=== PATIENT | male | born 1955 | race Caucasian/White ===

== ENCOUNTER 2018-06-13 08:58 | Inpatient (IN) | payer SELFPAY ==
--- NOTE | 2018-06-13 09:38 | C.PDOC ---
History Of Present Illness 62 yr old male w/ hx of etoh, smoking, neck surgery after fracturing his neck / falling 7 years prior p/w neck pain. Pt notes pain first started in his chest at 2000 last night, burning up from his throat, followed by neck pain. He notes the chest pain was not throbbing, and denies any family hx of heart issues. He notes that he had surgery on his neck done in [facility] and is followed there. He notes he is only visiting the [place]. He denies any sore throat or cough. No fever, chills or night sweats. No neck stiffness or headache. No recent fall or trauma. No nausea or vomiting. No abdominal pain. No constipation / diarrhea or dark or bloody stool. No redness to area. He denies any current chest pain. He notes mild SOB due to the neck pain. No change in phonation or dysphagia. Allergies: diclofenac Time Seen by Provider: 06/13/18 09:17 Chief Complaint (Nursing): Chest Pain Past Medical History Vital Signs: Last Vital Signs Temp 97.7 F 06/13/18 09:06 Pulse 76 06/13/18 09:06 Resp 18 06/13/18 09:06 BP 142/91 H 06/13/18 09:06 Pulse Ox 96 06/13/18 09:06 Family History: States: Unknown Family Hx - Social History Hx Alcohol Use: Yes Hx Substance Use: No - Immunization History Hx Tetanus Toxoid Vaccination: No Hx Influenza Vaccination: No Hx Pneumococcal Vaccination: No Review Of Systems Constitutional: Negative for: Fever, Chills, Sweats Eyes: Negative for: Pain, Vision Change ENT: Positive for: Throat Pain. Negative for: Ear Pain, Ear Discharge, Nose Pain, Nose Discharge, Nose Congestion, Mouth Pain, Mouth Swelling, Throat Swelling Cardiovascular: Negative for: Chest Pain, Palpitations, Orthopnea Respiratory: Positive for: Shortness of Breath. Negative for: Cough, Hemoptysis, SOB with Excertion, Pleuritic Pain, Sputum Gastrointestinal: Negative for: Nausea, Vomiting, Abdominal Pain, Diarrhea, Constipation, Melena, Hematochezia Genitourinary: Negative for: Dysuria, Frequency, Incontinence, Hematuria Musculoskeletal: Negative for: Neck Pain, Shoulder Pain Skin: Negative for: Rash, Lesions Neurological: Negative for: Weakness, Numbness Psych: Negative for: Anxiety Physical Exam - Physical Exam Appears: Well, Non-toxic, No Acute Distress Skin: Normal Color, Warm Head: Atraumatic, Normacephalic Eye(s): bilateral: Normal Inspection, PERRL, EOMI Ear(s): Bilateral: Normal Nose: Normal, No Flaring, No Discharge Oral Mucosa: Moist Tongue: Normal Appearing Lips: Normal Appearing Teeth: Normal Dentition Gingiva: Normal Appearing Throat: Normal, No Erythema, No Exudate, No Drooling, No Mass Neck: Normal, Normal ROM, Trachea Midline, No Midline Cervical Tenderness, No Paracervical Tenderness, No Step Off Deformity, Supple, Other (no meningeal signs) Lymphatic: No Adenopathy Chest: Symmetrical Cardiovascular: Rhythm Regular Respiratory: Normal Breath Sounds, No Decreased Breath Sounds, No Accessory Muscle Use, No Rales, No Rhonchi, No Stridor, No Wheezing Gastrointestinal/Abdominal: Normal Exam, Soft, No Tenderness Back: Normal Inspection, No CVA Tenderness Extremity: Normal ROM Neurological/Psych: Oriented x3, Normal Speech, Normal Cognition, No Cerebellar Signs, Normal Motor ED Course And Treatment - Laboratory Results Result Diagrams: 06/13/18 09:45 06/13/18 09:45 O2 Sat by Pulse Oximetry: 96 - CT Scan/US Cervical Spine CT Other Rad Studies (CT/US): Read By Radiologist, Radiology Report Reviewed CT/US Interpretation: IMPRESSION: Multilevel ACDF of. Discectomy changes C4-C5 through the C6-C7 levels with 4 level anterior fixation plate attached to the cortical margins of C4 through C7. There is a small amount of air seen adjacent to the anterior inferior margin of the fixation plate at the level of the C6 screws and also along the inferior tip of the plate. Findings may be secondary to partially air-filled esophagus which abuts the inferior margin of the plate however normally, area should not abut the fixation plate which may be in fact exposed to the aerodigestive tract. Clinical correlation with nor surgical consultation recommended. There also appears to be narrowing of the exit foramina at C6-C7 level due to hypertrophic uncovertebral facets. Medical Decision Making Medical Decision Makin yr old well appearing male, hx of neck surgery p/w chest pain yesterday (none today) and neck pain. Neck pain started yesterday as same time as chest pain but chest pain has resolved. No fall or trauma. He notes only pain with movement of his neck. Likely low risk heart score given non-conventional chest pain. On oropharyngeal exam- uvula midline, no erythema. No abnl noted. On palpation, pain around cricoid area. NO crepitus or erythema noted to site. Given hx of surgery, will seek imaging. EK, NSR, no stemi HEART Score: RF: 0 AGE: 3 Story: 0 EK Trop: pending 1137 trop unremark[address] CXR unremark[address] CT read w/ clinical correlation requested: ?perf Cervical Spine CT: IMPRESSION: Multilevel ACDF of. Discectomy changes C4-C5 through the C6-C7 levels with 4 level anterior fixation plate attached to the cortical margins of C4 through C7. There is a small amount of air seen adjacent to the anterior inferior margin of the fixation plate at the level of the C6 screws and also along the inferior tip of the plate. Findings may be secondary to partially air-filled esophagus which abuts the inferior margin of the plate however normally, area should not abut the fixation plate which may be in fact exposed to the aerodigestive tract. Clinical correlation with nor surgical consultation recommended. There also appears to be narrowing of the exit foramina at C6-C7 level due to hypertrophic uncovertebral facets. 11:48 Called assembler surgical garment, will see patient. 11:[address] Kimball, ENT director external communications. States to consult general surgery and GI. No intervention at this time per ENT 11:[address] Givens, GI director external communications. States no intervention at this time. 12:00 Neurosurgery paged. 12:25 appreciate consult w/ vice president commercial bank: Likely NSX consult, no acute intervention from general surgery- resident will get into contact w/ CT surgery. Neurosurgery paged. 12:45 Neurosurgery paged again. 12:51 no elevated WBC, ABX ordered. Pt remains non septic appearing. Spoke to Dr. Tomlin, Neurosurgery director external communications. Will see patient in the morning. No intervention at this time. [address] Tomlin and per his CT reading, pt may require scope, no NSX intervention at this time appreciate consultation w/ Dr. Salinas (medicine): to admit to her service. RE Paged GI. Pt in NAD 1413 Appreciate consult w/ Dr. Givens (GI) - to see pt Disposition - Disposition Disposition Time: 13:58 Condition: STABLE Forms: [facility] (Ukrainian) - Clinical Impression Clinical Impression: Neck pain
[2018-06-13 10:02] LABS: ALB/GLOB RATIO 1.4 (1.0-2.1); ALBUMIN 4.4 g/dL (3.5-5.0); ALT/SGPT 15 U/L (21-72); AST/SGOT 29 U/L (17-59); BLOOD UREA NITROGEN 11 mg/dL (9-20); CALCIUM 9.4 mg/dl (8.6-10.4); GFR NON-AFRICAN AMERICAN > 60; LIPASE 137 U/L (23-300)
[2018-06-13 10:04] LABS: BASO % 0.4 % (0.0-2.0); EOS # 0.1 K/uL (0.0-0.7); EOS % 0.6 % (0.0-4.0); HEMOGLOBIN 17.9 g/dL (12.0-18.0); LYMPH # 0.8 K/uL (1.0-4.3); LYMPH % 9.5 % (20.0-40.0); MEAN CELL VOLUME 105.5 fL (80.0-94.0); MEAN CORPUSCULAR HEMOGLOBIN 36.5 pg (27.0-31.0); MEAN CORPUSCULAR HGB CONC 34.6 g/dL (33.0-37.0); MEAN PLATELET VOLUME 7.3 fL (7.2-11.7); MONO # 1.3 K/uL (0.0-0.8); MONO % 14.7 % (0.0-10.0); NEUT # 6.4 K/uL (1.8-7.0); NEUT % 74.8 % (50.0-75.0); PLATELET COUNT 277 K/uL (130-400); RBC 4.91 Mil/uL (4.40-5.90); RED CELL DISTRIBUTION WIDTH 13.7 % (11.5-14.5); WHITE BLOOD COUNT 8.6 K/uL (4.8-10.8)
[2018-06-13 11:09] LABS: BANDS 2 % (0-2); LYMPHOCYTE 10 % (20-40); MONOCYTE 6 % (0-10); NEUTROPHIL 78 % (50-75); REACTIVE LYMPHOCYTES 4 % (0-0); TOTAL CELLS COUNTED 100
[2018-06-13 11:10] LABS: PLATELET ESTIMATE NORMAL (NORMAL)
[2018-06-13 11:11] LABS: ANISOCYTOSIS SLIGHT
[2018-06-13 11:12] LABS: OVALOCYTES SLIGHT
[2018-06-13 11:13] LABS: STOMATOCYTES SLIGHT
--- NOTE | 2018-06-13 11:13 | CT ---
Date of service: 06/13/2018 PROCEDURE: CT Cervical Spine without contrast HISTORY: History of plate/bone graft for previous fx COMPARISON: None available. TECHNIQUE: Axial computed tomography images were obtained of the cervical spine without the use of intravenous contrast. Coronal and sagittal reformatted images were created and reviewed. Radiation dose: Total exam DLP = 275.58 mGy-cm. This CT exam was performed using one or more of the following dose reduction techniques: Automated exposure control, adjustment of the mA and/or kV according to patient size, and/or use of iterative reconstruction technique. FINDINGS: VERTEBRAE: Multilevel ACDF. There are anterior discectomy changes involving the C4-C5, C5-C6 and C6-C7 levels. Four level anterior fixation plate attached to the anterior cortical margins of the C4 through the C7 segments by multiple of prominent anterior bridging osteophytes seen at the C3-C4 and C7-T1 levels.. There does appear to be small amount of air adjacent to the anterior inferior margin of the fixation plate just at the level of the C6 screws and also at the inferior tip of the plate which could be secondary to the a partially air-filled esophagus which abuts the inferior margin of the fixation plate . Normally, however air should not abut the fixation plate which may be in fact exposed to the aero digestive tract. Clinical correlation recommended. Neurosurgical consultation may be prudent for further evaluation. DISCS/SPINAL CANAL/NEURAL FORAMINA: There is mild disc space narrowing seen at the at C2-C3 and C3-C4 levels. Small central and bilateral bulge of the posterior annulus noted at the C3-C4 level which flattens the ventral surface of the thecal sac and appears to reach but does not compress the ventral surface of the cord. The uncovertebral and facet joints are slightly hypertrophic. Exit foramina appear adequate on the left and marginal to adequate on the right. The uncovertebral and facet joints are mildly hypertrophic at the remaining levels. The overall central bony canal appears adequate. PARASPINAL SOFT TISSUES: Paraspinal soft tissues unremarkable. OTHER FINDINGS: Small blebs and multiple blebs, small bowel and paraseptal emphysematous changes seen in the upper lobe/lung apices bilaterally right greater than left. There are also chronic of biapical pleural thickening changes and parenchymal scarring. IMPRESSION: Multilevel ACDF of. Discectomy changes C4-C5 through the C6-C7 levels with 4 level anterior fixation plate attached to the cortical margins of C4 through C7. There is a small amount of air seen adjacent to the anterior inferior margin of the fixation plate at the level of the C6 screws and also along the inferior tip of the plate. Findings may be secondary to partially air-filled esophagus which abuts the inferior margin of the plate however normally, area should not abut the fixation plate which may be in fact exposed to the aerodigestive tract. Clinical correlation with nor surgical consultation recommended. There also appears to be narrowing of the exit foramina at C6-C7 level due to hypertrophic uncovertebral facets. See above discussion for additional details and findings.
[2018-06-13] MEDS ORDERED: Piperacill/Tazo 3.375gm in Dex 3.375 GM/50 ML BAG IVPB STA (12:08)
[2018-06-13] MEDS ORDERED: Sodium Chloride 0.9% 1,000 ML IV SCH (13:00)
[2018-06-13] MEDS ORDERED: Piperacillin/Tazobact 3.375 gm 100 ML IVPB ONE (13:06)
[2018-06-13] MEDS ORDERED: Vancomycin 1 GM 1 GM/250 ML BAG IVPB ONE (13:06)
[2018-06-13] MEDS ORDERED: Sodium Chloride 0.9% 1,000 ML ONE (13:06)
[2018-06-13 13:09] LABS: VENOUS BLOOD GAS BASE EXCESS -3.1 mmol/L (0.0-2.0); VENOUS BLOOD GAS PCO2 39 mmHg (40-60); VENOUS BLOOD GAS PO2 50 mm/Hg (30-55); VENOUS BLOOD PH 7.36 (7.32-7.43)
--- NOTE | 2018-06-13 15:32 | RAD ---
Date of service: 06/13/2018 HISTORY: neck pain COMPARISON: No prior. TECHNIQUE: Chest PA and lateral FINDINGS: LUNGS: Lung nayak are hyperinflated consistent with underlying chronic manifestations of COPD. Mild biapical pleural thickening and adjacent parenchymal scarring felt to be present. PLEURA: No significant pleural effusion identified. No pneumothorax apparent. CARDIOVASCULAR: No aortic atherosclerotic calcification present. Normal cardiac size. No pulmonary vascular congestion. OSSEOUS STRUCTURES: Mild multilevel degenerative spondylosis of the thoracic spine VISUALIZED UPPER ABDOMEN: Four level ACDF plate seen overlying the lower cervical spine normal. OTHER FINDINGS: None. IMPRESSION: Hyperinflation-chronic changes of COPD. Mild biapical pleural thickening and parenchymal scarring
--- NOTE | 2018-06-13 15:43 | CP.PCM.CON ---
History of Present Illness - History of Present Illness History of Present Illness: I was asked to see this patient today for possible esophageal perforation. I discussed the case a few times with ER MD DR Henderson. The patient had a c spine plate put in 8 yrs ago after a fall. He reports chronic pains in his neck and c hest, He reports chronic SOB feeling after eating. Saliva is going down now. He ate donuts this am- no problem.+ Wt loss. Denies RB, melena, fever, chills.. + heavy ETOH and smoking Review of Systems - Constitutional Constitutional: Anorexia, Fatigue, Weight Loss. absent: Weight Gain - EENT Eyes: absent: Diplopia Nose/Mouth/Throat: Sore Throat, Neck Pain. absent: Dental Pain - Cardiovascular Cardiovascular: absent: Palpitations - Respiratory Respiratory: Cough, Dyspnea. absent: Hemoptysis, Wheezing, Stridor - Gastrointestinal Gastrointestinal: Dysphagia, Nausea, Vomiting. absent: Constipation, Diarrhea, Dyspepsia, Hematemesis, Hematochezia, Loose Stools, Melena - Genitourinary Genitourinary: absent: Hematuria - Integumentary Integumentary: absent: Pruritus, Rash - Neurological Neurological: Dizziness. absent: Confusion, Convulsions, Radicular Pain - Psychiatric Psychiatric: absent: Visual Hallucinations Past Patient History - Past Social History Smoking Status: Heavy Smoker > 10 Cigarettes Daily - PSYCHIATRIC Hx Substance Use: No - SURGICAL HISTORY Hx Surgeries: Yes Hx Musculoskeletal Surgery: Yes (neck s/p fall) - ANESTHESIA Hx Anesthesia: Yes Meds Allergies/Adverse Reactions: Allergies Allergy/AdvReac Type Severity Reaction Status Date / Time No Known Allergies Allergy Verified 06/13/18 09:06 - Medications Medications: Current Medications Sodium Chloride (Sodium Chloride 0.9%) 1,000 mls @ 75 mls/hr IV .[id number] DONNIE Physical Exam - Constitutional Appears: Non-toxic, Cachectic - ENT Exam Additional comments: pharync clear, neck- no crepitus. - Respiratory Exam Respiratory Exam: Clear to Auscultation Bilateral - Cardiovascular Exam Cardiovascular Exam: RRR - GI/Abdominal Exam GI & Abdominal Exam: Normal Bowel Sounds, Soft. absent: Distended, Guarding, Rebound - Extremities Exam Extremities exam: Negative for: calf tenderness - Neurological Exam Neurological exam: Alert, Oriented x3 - Psychiatric Exam Psychiatric exam: Normal Mood Results - Vital Signs Recent Vital Signs: Last Vital Signs Temp 98.3 F 06/13/18 14:06 Pulse 74 06/13/18 14:06 Resp 18 06/13/18 14:06 BP 131/81 06/13/18 14:06 Pulse Ox 96 06/13/18 14:16 - Labs Result Diagrams: 06/13/18 09:45 06/13/18 09:45 Labs: Laboratory Results - last 24 hr 06/13/18 06/13/18 06/13/18 09:45 09:45 13:05 WBC 8.6 RBC 4.91 Hgb 17.9 Hct 51.8 H MCV 105.5 H MCH 36.5 H MCHC 34.6 RDW 13.7 Plt Count 277 MPV 7.3 Neut % (Auto) 74.8 Lymph % (Auto) 9.5 L [place] % (Auto) 14.7 H Eos % (Auto) 0.6 Baso % (Auto) 0.4 Neut # (Auto) 6.4 Lymph # (Auto) 0.8 L [place] # (Auto) 1.3 H Eos # (Auto) 0.1 Baso # (Auto) 0.0 Neutrophils % (Manual) 78 H Band Neutrophils % 2 Lymphocytes % (Manual) 10 L Reactive Lymphs % 4 H Monocytes % (Manual) 6 Platelet Estimate Normal Anisocytosis (manual) Slight Macrocytosis (manual) Slight Ovalocytes Slight Stomatocytes Slight pO2 50 VBG pH 7.36 VBG pCO2 39 L VBG HCO3 22.1 VBG Total CO2 23.2 VBG O2 Sat (Calc) 87.7 H VBG Base Excess -3.1 L VBG Potassium 3.2 L Glucose 86 Lactate 1.0 Sodium 133 140.0 Potassium 4.1 Chloride 99 112.0 H Carbon Dioxide 27 Anion Gap 11 BUN 11 Creatinine 0.7 L Est GFR ( Amer) > 60 Est GFR (Non-Af Amer) > 60 Random Glucose 115 H Calcium 9.4 Total Bilirubin 0.9 AST 29 ALT 15 L Alkaline Phosphatase 124 Troponin I 0.0120 Total Protein 7.7 Albumin 4.4 Globulin 3.3 Albumin/Globulin Ratio 1.4 Lipase 137 Venous Blood Potassium 3.2 L Assessment & Plan (1) Chest pain Status: Acute (2) Neck pain Assessment and Plan: Pain has been chronic. Reports mild dysphagia- chronic. OCc SOB when eats. CT- shows air around neck plate- may be superimposed air from esophagus, vs perforation. WBC is normal. Due to risk of possible perforation, EGD is contraindicated. COnsider esophogram and/or CT chest. REC- NPO, PPI, Thoracic surgery consult. Neuro surg consult. CASe discussed with Dr Kimball, Dr Henderson, Dr Gunn, and admitting medical team. Consider endoscopy in future. Status: Acute
--- NOTE | 2018-06-13 15:52 | CP.PCM.CON ---
History of Present Illness - History of Present Illness History of Present Illness: Thoracic Surgery Dr. Haro 62 y/o M w/ PMHx of ACDF s/p fall 8yrs ago presents to the ED c/o pharyngitis and dyphagia. Pt admits to dysphagia present and unchanged since surgery; however pain is a new symptom and started last evening. Pt has never before had this pain. Pt denies associated F/C, N/V, CP, SOB, abd pain. Pt denies recent illness or injury. In the ED, pt underwent CT neck which was concerning for erosion of ACDF harrdware through the esophagus, for which surgery was consulted. PMHx: EtOH dependence Meds: reviewed in chart NKDA PSHx: ACDF, bone harvest from B/L hips SHx: heavy tobacco use; daily EtOH use; denies drug use FHx: noncontributory Review of Systems - Review of Systems All systems: reviewed and no additional remarkable complaints except (see HPI) Past Patient History - Past Social History Smoking Status: Heavy Smoker > 10 Cigarettes Daily - PSYCHIATRIC Hx Substance Use: No - SURGICAL HISTORY Hx Surgeries: Yes Hx Musculoskeletal Surgery: Yes (neck s/p fall) - ANESTHESIA Hx Anesthesia: Yes Meds Allergies/Adverse Reactions: Allergies Allergy/AdvReac Type Severity Reaction Status Date / Time No Known Allergies Allergy Verified 06/13/18 09:06 - Medications Medications: Current Medications Sodium Chloride (Sodium Chloride 0.9%) 1,000 mls @ 75 mls/hr IV .[id number] DONNIE Physical Exam - Constitutional Appears: Non-toxic, No Acute Distress - Head Exam Head Exam: NORMAL INSPECTION - Eye Exam Eye Exam: Normal appearance - ENT Exam ENT Exam: Mucous Membranes Moist - Neck Exam Neck exam: Positive for: Normal Inspection - Respiratory Exam Respiratory Exam: NORMAL BREATHING PATTERN. absent: Accessory Muscle Use, Respiratory Distress - Cardiovascular Exam Cardiovascular Exam: REGULAR RHYTHM. absent: Bradycardia, Tachycardia - GI/Abdominal Exam GI & Abdominal Exam: Soft. absent: Distended, Tenderness - Extremities Exam Extremities exam: Positive for: normal inspection - Neurological Exam Neurological exam: Alert, Oriented x3 - Psychiatric Exam Psychiatric exam: Normal Affect, Normal Mood - Skin Skin Exam: Dry, Intact, Normal Color, Warm Results - Vital Signs Recent Vital Signs: Last Vital Signs Temp 98.3 F 03/03/19 14:06 Pulse 74 06/13/18 14:06 Resp 18 06/13/18 14:06 BP 131/81 06/13/18 14:06 Pulse Ox 96 06/13/18 14:16 - Labs Result Diagrams: 06/13/18 09:45 06/13/18 09:45 Labs: Laboratory Results - last 24 hr 06/13/18 06/13/18 06/13/18 09:45 09:45 13:05 WBC 8.6 RBC 4.91 Hgb 17.9 Hct 51.8 H MCV 105.5 H MCH 36.5 H MCHC 34.6 RDW 13.7 Plt Count 277 MPV 7.3 Neut % (Auto) 74.8 Lymph % (Auto) 9.[address] [place] % (Auto) 14.7 H Eos % (Auto) 0.6 Baso % (Auto) 0.4 Neut # (Auto) 6.4 Lymph # (Auto) 0.[address] [place] # (Auto) 1.3 H Eos # (Auto) 0.1 Baso # (Auto) 0.0 Neutrophils % (Manual) 78 H Band Neutrophils % 2 Lymphocytes % (Manual) 10 L Reactive Lymphs % 4 H Monocytes % (Manual) 6 Platelet Estimate Normal Anisocytosis (manual) Slight Macrocytosis (manual) Slight Ovalocytes Slight Stomatocytes Slight pO2 50 VBG pH 7.36 VBG pCO2 39 L VBG HCO3 22.1 VBG Total CO2 23.2 VBG O2 Sat (Calc) 87.7 H VBG Base Excess -3.1 L VBG Potassium 3.2 L Glucose 86 Lactate 1.0 Sodium 133 140.0 Potassium 4.1 Chloride 99 112.0 H Carbon Dioxide 27 Anion Gap 11 BUN 11 Creatinine 0.7 L Est GFR ( Amer) > 60 Est GFR (Non-Af Amer) > 60 Random Glucose 115 H Calcium 9.4 Total Bilirubin 0.9 AST 29 ALT 15 L Alkaline Phosphatase 124 Troponin I 0.0120 Total Protein 7.7 Albumin 4.4 Globulin 3.3 Albumin/Globulin Ratio 1.4 Lipase 137 Venous Blood Potassium 3.2 L - Imaging and Cardiology CT scan - c/s Status: Image reviewed by me, Report reviewed by me Assessment & Plan - Assessment and Plan (Free Text) Assessment: 62 y/o M w/ potential esophageal erosion by ACDF Plan: - recommend gastrograffin swallow study to r/o perforation - NeruoSurgery consult - monitor vitals - monitor WBC - CT C to w/o pneumomediastinum - GI consulted --> EDG Pt discussed w/ Dr. Estrellita Anguiano DO PGY3
[2018-06-13] MEDS ORDERED: Multivitamin (MVI) 10 ML, Thiamine 100 MG, Folic Acid 1 MG in Sodium Chloride 0.9% 1,00... IV ONE (15:55)
--- NOTE | 2018-06-13 16:25 | CP.PCM.HP ---
History of Present Illness - History of Present Illness History of Present Illness: 62 year old male with past medical history of anterior cervical discectomy and fusion (10 years ago) presents to the ER for pain with swallowing. Patient states he has pain and difficulty with swallowing after his surgery 10 years ago but yesterday the pain became worse 10/10 pain. Patient states the pain radiates to his chest. He states sometimes when he eats the food comes out through his nose which has also been chronic. He states he always feels like food is getting stuck in his throat. His son who is at bedside states he always takes a very long time to finish any meal. Patient states the pain is worse with eating and breathing. Patient also states he also has chronic numbness on the left side of his extremities after the surgery. Patient denies fever, chills, nausea, vomiting, abdominal pain, dysuria, constipation or diarrhea. PMD: none Past Medical History: denies Past Surgical History: anterior cervical discectomy and fusion (10 years ago in [facility])- occurred after a fall down the stairs; bone harvest from bilateral hip Medications: denies Allergies: diclofenac - rash Family History: denies Social History: Originally from [facility] - visiting his son; daily alcohol use - states "alot"; smokes about 1/2 ppd for 50 years; denies illicit drug use Present on Admission - Present on Admission Any Indicators Present on Admission: No Review of Systems - Constitutional Constitutional: absent: Chills, Fever - Cardiovascular Cardiovascular: Chest Pain. absent: Dyspnea, Leg Edema, Palpitations, Pedal Edema - Respiratory Respiratory: absent: Cough, Dyspnea - Gastrointestinal Gastrointestinal: Dysphagia. absent: Constipation, Diarrhea, Heartburn, Loose Stools, Nausea, Vomiting - Genitourinary Genitourinary: absent: Dysuria - Musculoskeletal Musculoskeletal: Neck Pain - Neurological Neurological: absent: Dizziness Past Patient History - Past Social History Smoking Status: Heavy Smoker > 10 Cigarettes Daily - PSYCHIATRIC Hx Substance Use: No - SURGICAL HISTORY Hx Surgeries: Yes Hx Musculoskeletal Surgery: Yes (neck s/p fall) - ANESTHESIA Hx Anesthesia: Yes Meds Allergies/Adverse Reactions: Allergies Allergy/AdvReac Type Severity Reaction Status Date / Time No Known Allergies Allergy Verified 06/13/18 09:06 Physical Exam - Constitutional Appears: No Acute Distress, Cachectic - Head Exam Head Exam: ATRAUMATIC, NORMAL INSPECTION - Eye Exam Eye Exam: EOMI, Normal appearance, PERRL Pupil Exam: NORMAL ACCOMODATION - ENT Exam ENT Exam: Mucous Membranes Dry - Respiratory Exam Respiratory Exam: Clear to Auscultation Bilateral, NORMAL BREATHING PATTERN. absent: Rales, Rhonchi, Wheezes - Cardiovascular Exam Cardiovascular Exam: REGULAR RHYTHM, +S1, +S2 - GI/Abdominal Exam GI & Abdominal Exam: Normal Bowel Sounds, Soft. absent: Tenderness - Extremities Exam Extremities exam: Positive for: normal inspection. Negative for: pedal edema, tenderness - Neurological Exam Neurological exam: Alert, CN II-XII Intact, Oriented x3 - Expanded Neurological Exam Expanded Patient oriented to: person Neuro motor strength exam: Left Upper Extremity: 5, Right Upper Extremity: 5, Left Lower Extremity: 5, Right Lower Extremity: 5 Coma Scale Eye Opening: SPONTANEOUS Coma Scale Motor Response: OBEYS COMMANDS Coma Scale Verbal: Oriented Coma Scale Total: 15 - Psychiatric Exam Psychiatric exam: Normal Affect - Skin Skin Exam: Normal Color Results - Vital Signs Recent Vital Signs: Last Vital Signs Temp 98.3 F 06/13/18 14:06 Pulse 74 06/13/18 14:06 Resp 18 06/13/18 14:06 BP 131/81 06/13/18 14:06 Pulse Ox 96 06/13/18 14:16 - Labs Result Diagrams: 06/13/18 09:45 06/13/18 09:45 Labs: Laboratory Results - last 24 hr 06/13/18 06/13/18 06/13/18 09:45 09:45 13:05 WBC 8.6 RBC 4.91 Hgb 17.9 Hct 51.8 H MCV 105.5 H MCH 36.5 H MCHC 34.6 RDW 13.7 Plt Count 277 MPV 7.3 Neut % (Auto) 74.8 Lymph % (Auto) 9.[address] [facility] % (Auto) 14.7 H Eos % (Auto) 0.6 Baso % (Auto) 0.4 Neut # (Auto) 6.4 Lymph # (Auto) 0.[address] [facility] # (Auto) 1.3 H Eos # (Auto) 0.1 Baso # (Auto) 0.0 Neutrophils % (Manual) 78 H Band Neutrophils % 2 Lymphocytes % (Manual) 10 L Reactive Lymphs % 4 H Monocytes % (Manual) 6 Platelet Estimate Normal Anisocytosis (manual) Slight Macrocytosis (manual) Slight Ovalocytes Slight Stomatocytes Slight pO2 50 VBG pH 7.36 VBG pCO2 39 L VBG HCO3 22.1 VBG Total CO2 23.2 VBG O2 Sat (Calc) 87.7 H VBG Base Excess -3.1 L VBG Potassium 3.2 L Glucose 86 Lactate 1.0 Sodium 133 140.0 Potassium 4.1 Chloride 99 112.0 H Carbon Dioxide 27 Anion Gap 11 BUN 11 Creatinine 0.7 L Est GFR ( Amer) > 60 Est GFR (Non-Af Amer) > 60 Random Glucose 115 H Calcium 9.4 Total Bilirubin 0.9 AST 29 ALT 15 L Alkaline Phosphatase 124 Troponin I 0.0120 Total Protein 7.7 Albumin 4.4 Globulin 3.3 Albumin/Globulin Ratio 1.4 Lipase 137 Venous Blood Potassium 3.2 L Assessment & Plan - Assessment and Plan (Free Text) Assessment: Dysphagia - patient is s/p ACDF (10 years ago) - per ER - spoke with neurosurgery - Dr. Tomlin - no intervention at this time; ER spoke with Dr. Kimball - no intervention at this time - GI Consult: Dr. Givens -->help appreciated * EGD contraindicated at this time * f/u barrium esophagram - Thoracic Surgery Consult: Dr. Haro --> help appreciated Images: * Cervical Spine/CT: Multilevel ACDF of. Discectomy changes C4-C5 through the C6-C7 levels with 4 level anterior fixation plate attached to the cortical margins of C4 through C7. There is a small amount of air seen adjacent to the anterior inferior margin of the fixation plate at the level of the C6 screws and also along the inferior tip of the plate. Findings may be secondary to partially air-filled esophagus which abuts the inferior margin of the plate however normally, area should not abut the fixation plate which may be in fact exposed to the aerodigestive tract. Clinical correlation with nor surgical consultation recommended. There also appears to be narrowing of the exit foramina at C6-C7 level due to hypertrophic uncovertebral facets. - Liquid Diet; NPO after midnight if patient will have a procedure - f.u with Dr. Givens - Medications: * Protonix 40mg IV daily * Toradol 15mg IVP q6prn for pain Shortness of breath - patient states his dysphagia causes him to be SOB - possibly secondary to COPD - Chest x-ray: Hyperinflation-chronic changes of COPD. Mild biapical pleural thickening and parenchymal scarring - Duonebs q6 prn Tobacco Dependence - Discussed smoking cessation - Nicotine patch 14mg daily Alcohol Dependence - CIWA protocol - Ativan 1mg q6prn - Multivitamin w/NS @ 80cc/hr - Discussed alcohol cessation Prophylaxis - Protonix 40mg IV daily - SCDs - Physical Therapy Case discussed with Dr. Molly Sam PGY-2
[2018-06-13 17:03] LABS: INR 0.9; PROTHROMBIN TIME 10.3 SECONDS (9.7-12.2)
[2018-06-13 20:45] LABS: CK-MB 0.85 ng/mL (0.0-3.38); TROPONIN I 0.023 ng/mL (0.00-0.120)
[2018-06-13] MEDS ORDERED: Albuterol-Ipratrop 3 mg / 0.5 (3 ml) UD INH PRN (23:09)
--- NOTE | 2018-06-13 23:52 | CP.PCM.PCO ---
Physician Communication Note - Physician Communication Note Physician Communication Note: Toradol held due to Voltarin allergy.
--- NOTE | 2018-06-14 07:26 | CP.PCM.PN ---
<Hari Hall - Last Filed: 06/14/18 14:53> Subjective - Date & Time of Evaluation Date of Evaluation: 06/14/18 Time of Evaluation: 07:26 - Subjective Subjective: PGY-1 Medicine Progress Note for Dr. Ladd Patient seen and examined at bedside this AM. No acute overnight events reported. Continues to endorse dysphagia, unchanged since his surgery many years ago. Pain with swallowing is new however, which is what prompted him to come to ED. No fevers/chills, chest pain, palpitations, sob, abdominal pain, n/v/d/c. 12 pt ROS reviewed and otherwise negative. Objective - Vital Signs/Intake and Output Vital Signs (last 24 hours): Temp Pulse Resp BP Pulse Ox 98.4 F 79 20 135/82 94 L 06/14/18 00:00 06/14/18 00:00 06/14/18 00:00 06/14/18 00:00 06/14/18 00:00 Intake and Output: 06/14/18 06/14/18 06:59 18:59 Intake Total 640 Balance 640 - Medications Medications: Current Medications Acetaminophen (Tylenol 325mg Tab) 650 mg PO Q6 PRN PRN Reason: Pain, moderate (4-7) Albuterol/Ipratropium (Duoneb 3 Mg/0.5 Mg (3 Ml) Ud) 3 ml INH RQ6 PRN PRN Reason: Shortness of Breath Lorazepam (Ativan) 1 mg IVP Q6H PRN PRN Reason: Symptoms of alcohol withdrawl Nicotine (Nicoderm Cq) 1 patch TD DAILY [facility] Pantoprazole Sodium (Protonix Inj) 40 mg IVP DAILY [facility] - Labs Labs: 06/13/18 09:45 06/13/18 09:45 PT 10.3 SECONDS (9.7-12.2) 06/13/18 16:25 INR 0.9 06/13/18 16:25 APTT 33 SECONDS (21-34) 06/13/18 16:25 - Constitutional Appears: Non-toxic, No Acute Distress - Head Exam Head Exam: ATRAUMATIC, NORMAL INSPECTION, NORMOCEPHALIC - Eye Exam Eye Exam: EOMI, Normal appearance, PERRL Pupil Exam: NORMAL ACCOMODATION - ENT Exam ENT Exam: Mucous Membranes Moist, Normal Exam, Normal Oropharynx - Neck Exam Neck Exam: Full ROM, Normal Inspection - Respiratory Exam Respiratory Exam: Clear to Ausculation Bilateral, NORMAL BREATHING PATTERN. absent: Accessory Muscle Use, Rales, Rhonchi, Wheezes, Respiratory Distress, Stridor - Cardiovascular Exam Cardiovascular Exam: REGULAR RHYTHM, +S1, +S2 - GI/Abdominal Exam GI & Abdominal Exam: Soft, Normal Bowel Sounds. absent: Distended, Firm, Guarding, Rigid, Tenderness, Rebound - Extremities Exam Extremities Exam: Full ROM, Normal Capillary Refill, Normal Inspection. absent: Calf Tenderness, Pedal Edema - Back Exam Back Exam: NORMAL INSPECTION - Neurological Exam Neurological Exam: Alert, Awake, Normal Gait, Oriented x3 - Skin Skin Exam: Dry, Intact, Normal Color, Warm Assessment and Plan - Assessment and Plan (Free Text) Assessment: 62 year old M with PMHx of anterior cervical discetomy and fusion (10 years ago) presenting with chronic dysphagia and acute onset odynophagia Plan: Odynophagia, acute Dysphagia, chronic -pt s/p ACDF (10 years ago) -Neurosurgery (Dr. Tomlin): no intervention at this time -ENT (Dr. Kimball): no intervention at this time -GI (Dr. Givens): EGD relatively contraindicated at this time -Thoracic Surgery (Dr. Haro) recs appreciated -f/u gastrograffin swallow study to r/o perforation -CT cervical spine: Multilevel ACDF discectomy changes C4-C5 through the C6-C7 levels with 4 level anterior fixation plate attached to the cortical margins of C4 through C7. There is a small amount of air seen adjacent to the anterior inferior margin of the fixation plate at the level of the C6 screws and also along the inferior tip of the plate. Findings may be secondary to partially air-filled esophagus which abuts the inferior margin of the plate however normally, area should not abut the fixation plate which may be in fact exposed to the aerodigestive tract. Clinical correlation with nor surgical consultation recommended. There also appears to be narrowing of the exit foramina at C6-C7 level due to hypertrophic uncovertebral facets. -Chest CT (06/14): Ascending aortic aneurysm ~ 4.1 cm in AP dimension. -pt asymptomatic, continue to monitor -control of HTN to limiter further aortic expansion -surveillance imaging in 6 months -consider vascular surgery consult -NS @ 100cc/hr -Protonix 40mg IV daily -Toradol 15mg IVP q6 prn SOB, resolved -Hx of COPD -CXR: Hyperinflation-chronic changes of COPD. Mild biapical pleural thickening and parenchymal scarring - Duonebs q6 prn Tobacco Dependence -smoking cessation counseling -nicotine patch 14mg daily Alcohol Dependence -[facility] protocol -Ativan 1mg q6 prn -Discussed alcohol cessation Ppx, Diet, Disposition - DVT ppx: scds -GI ppx: protonix daily -PT on board -Diet: NPO Case discussed with Dr. Julee Hall DO, PGY-1 <Reyes Ladd - Last Filed: 06/14/18 16:15> Objective - Vital Signs/Intake and Output Vital Signs (last 24 hours): Temp Pulse Resp BP Pulse Ox 97.5 F L 95 H 20 120/83 96 06/14/18 15:59 06/14/18 15:59 06/14/18 15:59 06/14/18 15:59 06/14/18 15:59 Intake and Output: 06/14/18 06/14/18 06:59 18:59 Intake Total 940 Balance 940 - Medications Medications: Current Medications Acetaminophen (Tylenol 325mg Tab) 650 mg PO Q6 PRN PRN Reason: Pain, moderate (4-7) Albuterol/Ipratropium (Duoneb 3 Mg/0.5 Mg (3 Ml) Ud) 3 ml INH RQ6 PRN PRN Reason: Shortness of Breath Sodium Chloride (Sodium Chloride 0.9%) 1,000 mls @ 100 mls/hr IV .Q10H [facility] Last Admin: 06/14/18 12:14 Dose: 100 mls/hr Influenza Virus Vaccine (Flucelvax Quad [id number] Syr) 60 mcg IM .ONCE ONE Stop: 06/15/18 10:01 Lorazepam (Ativan) 1 mg IVP Q6H PRN PRN Reason: Symptoms of alcohol withdrawl Nicotine (Nicoderm Cq) 1 patch TD DAILY [facility] Last Admin: 06/14/18 10:00 Dose: 1 patch Pantoprazole Sodium (Protonix Inj) 40 mg IVP DAILY [facility] Last Admin: 06/14/18 10:00 Dose: 40 mg Pneumococcal Polyvalent Vaccine (Pneumovax 23 Vaccine) 0.5 ml IM .ONCE ONE Stop: 06/15/18 10:01 - Labs Labs: 06/14/18 08:05 06/14/18 08:05 PT 10.3 SECONDS (9.7-12.2) 06/13/18 16:25 INR 0.9 06/13/18 16:25 APTT 33 SECONDS (21-34) 06/13/18 16:25 Attending/Attestation - Attestation I have personally seen and examined this patient.: Yes I have fully participated in the care of the patient.: Yes I have reviewed all pertinent clinical information, including history, physical exam and plan: Yes Notes (Text): 06/14/18 16:07 Medical attending: Patient was seen and examined by me. Agree with the above note by the resident The patient was not in any acute distress when we saw him He had an esophagram done which was not completed due to gross aspiration and it was suggest he may benefit from a video swallow study or an upper EGD This morning he was pending additional study The patient also had CT scan of the chest showing as mentioned above in the resident note the 4 cm anursym which will need additional outpatient followup as well as extensive COPD and bullae formation/scarring of the lung tissue.
[2018-06-14 08:25] LABS: BASO % 0.6 % (0.0-2.0); EOS # 0.1 K/uL (0.0-0.7); EOS % 0.9 % (0.0-4.0); HEMOGLOBIN 17.4 g/dL (12.0-18.0); LYMPH % 17.6 % (20.0-40.0); MEAN CELL VOLUME 106.4 fL (80.0-94.0); MEAN CORPUSCULAR HEMOGLOBIN 36.4 pg (27.0-31.0); MEAN CORPUSCULAR HGB CONC 34.3 g/dL (33.0-37.0); MEAN PLATELET VOLUME 7.3 fL (7.2-11.7); MONO # 0.9 K/uL (0.0-0.8); NEUT # 3.8 K/uL (1.8-7.0); NEUT % 65.9 % (50.0-75.0); NRBC % 0.1 % (0.0-2.0); RBC 4.78 Mil/uL (4.40-5.90); RED CELL DISTRIBUTION WIDTH 13.7 % (11.5-14.5); WHITE BLOOD COUNT 5.7 K/uL (4.8-10.8)
[2018-06-14 08:31] LABS: ALB/GLOB RATIO 1.3 (1.0-2.1); ALBUMIN 3.8 g/dL (3.5-5.0); ALT/SGPT 17 U/L (21-72); AST/SGOT 28 U/L (17-59); BLOOD UREA NITROGEN 9 mg/dL (9-20); CALCIUM 8.6 mg/dl (8.6-10.4); GFR NON-AFRICAN AMERICAN > 60
[2018-06-14] MEDS ORDERED: Thiamine 100 mg/ml Inj IV SCH (10:00)
--- NOTE | 2018-06-14 10:33 | CT ---
Date of service: 06/14/2018 CT chest without IV contrast Indication: r/o pneumomediastinum Technique: Contiguous axial images were obtained through the chest without intravenous contrast enhancement. Sagittal and coronal reconstructions were generated and reviewed. This CT exam was performed using 1 or more of the following dose reduction techniques: Automated exposure control, adjustment of the MAA and/or kV according to patient size, and/or use of iterative reconstruction technique. Radiation dose (DLP): 194.22 MGy-cm. Comparison: Chest x-ray performed 06/13/18 Findings: Visualized portions of the inferior thyroid gland appear unremarkable. The unenhanced mediastinal and hilar vascular structures appear grossly unremarkable. The heart appears within normal limits of size. Ascending aortic aneurysm measuring approximately 4.1 cm in AP dimension. Hyperinflation may be seen in setting of COPD. Emphysematous changes with extensive bulla present. Biapical scarring. No focal consolidation. No pleural effusion. No pneumothorax. No suspicious pulmonary nodules measuring greater than 5 mm. Limited visualization of the noncontrast upper abdomen appears grossly unremarkable. Partially imaged anterior cervical fusion hardware. Degenerative changes of the spine. Kyphosis. Impression: COPD/emphysematous changes with extensive bulla present. Biapical scarring. Ascending aortic aneurysm measuring approximately 4.1 cm in AP dimension.
[2018-06-14] MEDS: Sodium Chloride 0.9% 1,000 ML IV SCH (12:14)
[2018-06-14] MEDS ORDERED: Iohexol 240 (50 ml) ONE (12:42)
[2018-06-14] MEDS ORDERED: Iohexol 240 200 ML ONE (12:43)
--- NOTE | 2018-06-14 14:55 | RAD ---
Date of service: 06/14/2018 PROCEDURE: Single contrast esophagram HISTORY: Dysphagia. Evaluation for esophageal perforation. COMPARISON: None available. TECHNIQUE: Fluoroscopic evaluation of the esophagus was performed following administration of oral contrast. FINDINGS: Limited single contrast esophagram was performed for evaluation of esophageal perforation. Upon swallowing contrast, gross aspiration was noted of the contrast. A limited single swallow of the esophagus revealed no gross esophageal perforation; however, exam was terminated after gross aspiration was noted. Further evaluation with video esophagram and or upper GI endoscopy maybe helpful for further evaluation if clinically indicated. IMPRESSION: Limited single contrast esophagram was performed for evaluation of esophageal perforation. Upon swallowing contrast, gross aspiration was noted of the contrast. A limited single swallow of the esophagus revealed no gross esophageal perforation; however, exam was terminated after gross aspiration was noted. Further evaluation with video esophagram and or upper GI endoscopy maybe helpful for further evaluation if clinically indicated.
--- NOTE | 2018-06-14 17:11 | CP.PCM.PN ---
Subjective - Date & Time of Evaluation Date of Evaluation: 06/14/18 Time of Evaluation: 17:07 - Subjective Subjective: GI Service Feels choking when attempting to eat. Has been feeling pain inthroat radiating to shoulders and across upper chest. Could not swallow gastrograffin. Symptoms have been bothering him since cervical neck fracture 10 years ago. Objective - Vital Signs/Intake and Output Vital Signs (last 24 hours): Temp Pulse Resp BP Pulse Ox 97.5 F L 95 H 20 120/83 96 06/14/18 15:59 06/14/18 15:59 06/14/18 15:59 06/14/18 15:59 06/14/18 15:59 Intake and Output: 06/14/18 06/14/18 06:59 18:59 Intake Total 940 Balance 940 - Medications Medications: Current Medications Acetaminophen (Tylenol 325mg Tab) 650 mg PO Q6 PRN PRN Reason: Pain, moderate (4-7) Albuterol/Ipratropium (Duoneb 3 Mg/0.5 Mg (3 Ml) Ud) 3 ml INH RQ6 PRN PRN Reason: Shortness of Breath Sodium Chloride (Sodium Chloride 0.9%) 1,000 mls @ 100 mls/hr IV .Q10H [facility] Last Admin: 06/14/18 12:14 Dose: 100 mls/hr Influenza Virus Vaccine (Flucelvax Quad [id number] Syr) 60 mcg IM .ONCE ONE Stop: 06/15/18 10:01 Lorazepam (Ativan) 1 mg IVP Q6H PRN PRN Reason: Symptoms of alcohol withdrawl Nicotine (Nicoderm Cq) 1 patch TD DAILY [facility] Last Admin: 06/14/18 10:00 Dose: 1 patch Pantoprazole Sodium (Protonix Inj) 40 mg IVP DAILY [facility] Last Admin: 06/14/18 10:00 Dose: 40 mg Pneumococcal Polyvalent Vaccine (Pneumovax 23 Vaccine) 0.5 ml IM .ONCE ONE Stop: 06/15/18 10:01 - Labs Labs: 06/14/18 08:05 06/14/18 08:05 PT 10.3 SECONDS (9.7-12.2) 06/13/18 16:25 INR 0.9 06/13/18 16:25 APTT 33 SECONDS (21-34) 06/13/18 16:25 - Constitutional Appears: Cachectic - Head Exam Additional comments: bitemporal wasting - Cardiovascular Exam Cardiovascular Exam: REGULAR RHYTHM - GI/Abdominal Exam GI & Abdominal Exam: Soft. absent: Tenderness Assessment and Plan (1) Neck pain Assessment & Plan: Acute on chronic symptoms since neck fracture. Now with pain and inability to swallow, + choking. While Esophageal pathology is a possibility, it is more likely to be related to his cervical neck injury. I recommend Neurosurgery consult and ENT consult for evaluation. EGD if it becomes necessary, can not be done unless he is first evaluated and cleared. Discussed with Dr Ladd Status: Acute
--- NOTE | 2018-06-14 19:16 | CP.PCM.CON ---
History of Present Illness - History of Present Illness History of Present Illness: Spoke with ER Thursday AM : The fixation plate and all intravertebal screws are all in good position and undoubtedly unchanged over 7 years There is no loosening or dislodgement No indication for neurosurgical involvement at this time Past Patient History - Past Social History Smoking Status: Heavy Smoker > 10 Cigarettes Daily - MUSCULOSKELETAL/RHEUMATOLOGICAL Hx Falls: No - PSYCHIATRIC Hx Substance Use: No - SURGICAL HISTORY Hx Surgeries: Yes Hx Musculoskeletal Surgery: Yes (neck s/p fall) - ANESTHESIA Hx Anesthesia: Yes Meds Allergies/Adverse Reactions: Allergies Allergy/AdvReac Type Severity Reaction Status Date / Time diclofenac Allergy RASH Verified 06/13/18 22:50 - Medications Medications: Current Medications Acetaminophen (Tylenol 325mg Tab) 650 mg PO Q6 PRN PRN Reason: Pain, moderate (4-7) Albuterol/Ipratropium (Duoneb 3 Mg/0.5 Mg (3 Ml) Ud) 3 ml INH RQ6 PRN PRN Reason: Shortness of Breath Sodium Chloride (Sodium Chloride 0.9%) 1,000 mls @ 100 mls/hr IV .Q10H [facility] Last Admin: 06/14/18 12:14 Dose: 100 mls/hr Influenza Virus Vaccine (Flucelvax Quad [id number] Syr) 60 mcg IM .ONCE ONE Stop: 06/15/18 10:01 Lorazepam (Ativan) 1 mg IVP Q6H PRN PRN Reason: Symptoms of alcohol withdrawl Nicotine (Nicoderm Cq) 1 patch TD DAILY [facility] Last Admin: 06/14/18 10:00 Dose: 1 patch Pantoprazole Sodium (Protonix Inj) 40 mg IVP DAILY [facility] Last Admin: 06/14/18 10:00 Dose: 40 mg Pneumococcal Polyvalent Vaccine (Pneumovax 23 Vaccine) 0.5 ml IM .ONCE ONE Stop: 06/15/18 10:01 Results - Vital Signs Recent Vital Signs: Last Vital Signs Temp 97.5 F L 06/14/18 15:59 Pulse 95 H 06/14/18 15:59 Resp 20 06/14/18 15:59 BP 120/83 06/14/18 15:59 Pulse Ox 96 06/14/18 15:59 - Labs Result Diagrams: 06/14/18 08:05 06/14/18 08:05 Labs: Laboratory Results - last 24 hr 06/13/18 06/14/18 06/14/18 20:02 08:05 08:05 WBC 5.7 RBC 4.78 Hgb 17.4 Hct 50.9 MCV 106.4 H MCH 36.4 H MCHC 34.3 RDW 13.7 Plt Count 268 MPV 7.3 Neut % (Auto) 65.9 Lymph % (Auto) 17.6 L [place] % (Auto) 15.0 H Eos % (Auto) 0.9 Baso % (Auto) 0.6 Neut # (Auto) 3.8 Lymph # (Auto) 1.0 [place] # (Auto) 0.9 H Eos # (Auto) 0.1 Baso # (Auto) 0.0 Sodium 133 Potassium 4.0 Chloride 102 Carbon Dioxide 27 Anion Gap 9 L BUN 9 Creatinine 0.8 Est GFR ( Amer) > 60 Est GFR (Non-Af Amer) > 60 Random Glucose 88 D Calcium 8.6 Phosphorus 3.2 Magnesium 2.2 Total Bilirubin 0.9 AST 28 ALT 17 L Alkaline Phosphatase 119 Total Creatine Kinase 76 CK-MB (Mass) 0.85 Troponin I 0.0230 Total Protein 6.7 Albumin 3.8 Globulin 2.9 Albumin/Globulin Ratio 1.3
--- NOTE | 2018-06-14 22:31 | CARD ---
APPROVED REPORT Date of service: 06/13/2018 EKG Measurement Heart [id number] <Conclusion> Normal sinus rhythm Possible Anterior infarct, age undetermined Lateral T wave abnormality, consider ischemia Abnormal ECG
[2018-06-15] MEDS: Sodium Chloride 0.9% 1,000 ML IV SCH (01:20)
[2018-06-15 07:47] LABS: EOS # 0.1 K/uL (0.0-0.7); EOS % 1.3 % (0.0-4.0); HEMOGLOBIN 17.5 g/dL (12.0-18.0); LYMPH % 19.5 % (20.0-40.0); MEAN CELL VOLUME 106.9 fL (80.0-94.0); MEAN CORPUSCULAR HEMOGLOBIN 36.5 pg (27.0-31.0); MEAN CORPUSCULAR HGB CONC 34.1 g/dL (33.0-37.0); MEAN PLATELET VOLUME 7.4 fL (7.2-11.7); MONO # 0.6 K/uL (0.0-0.8); MONO % 11.7 % (0.0-10.0); NEUT # 3.4 K/uL (1.8-7.0); NEUT % 66.5 % (50.0-75.0); RBC 4.78 Mil/uL (4.40-5.90); RED CELL DISTRIBUTION WIDTH 13.5 % (11.5-14.5)
[2018-06-15 08:42] LABS: ALB/GLOB RATIO 1.3 (1.0-2.1); ALT/SGPT 17 U/L (21-72); AST/SGOT 30 U/L (17-59); BLOOD UREA NITROGEN 18 mg/dL (9-20); CALCIUM 8.8 mg/dl (8.6-10.4); GFR NON-AFRICAN AMERICAN > 60
--- NOTE | 2018-06-15 09:31 | CP.PCM.PN ---
<Hari Hall - Last Filed: 06/15/18 15:44> Subjective - Date & Time of Evaluation Date of Evaluation: 06/15/18 Time of Evaluation: 09:31 - Subjective Subjective: PGY-1 Medicine Progress Note for Dr. Ladd Patient seen and examined at bedside s/p gastrograffin swallow eval, in no acute distress. No overnight events reported. Gastrograffin study was limited due to patient unable to tolerate. Modified barium swallow was ordered, per ENT recs, with plans for biospy of noted vocal cord lesion on Thurs. Objective - Vital Signs/Intake and Output Vital Signs (last 24 hours): Temp Pulse Resp BP Pulse Ox 97.8 F 68 20 108/67 96 06/15/18 07:02 06/15/18 07:02 06/15/18 07:02 06/15/18 07:02 06/15/18 07:02 Intake and Output: 06/15/18 06/15/18 06:59 18:59 Intake Total 1600 Output Total 1050 Balance 550 - Medications Medications: Current Medications Acetaminophen (Tylenol 325mg Tab) 650 mg PO Q6 PRN PRN Reason: Pain, moderate (4-7) Albuterol/Ipratropium (Duoneb 3 Mg/0.5 Mg (3 Ml) Ud) 3 ml INH RQ6 PRN PRN Reason: Shortness of Breath Sodium Chloride (Sodium Chloride 0.9%) 1,000 mls @ 100 mls/hr IV .Q10H [facility] Last Admin: 06/15/18 01:20 Dose: 100 mls/hr Influenza Virus Vaccine (Flucelvax Quad [id number] Syr) 60 mcg IM .ONCE ONE Stop: 06/15/18 10:01 Lorazepam (Ativan) 1 mg IVP Q6H PRN PRN Reason: Symptoms of alcohol withdrawl Nicotine (Nicoderm Cq) 1 patch TD DAILY [facility] Last Admin: 06/14/18 10:00 Dose: 1 patch Pantoprazole Sodium (Protonix Inj) 40 mg IVP DAILY [facility] Last Admin: 06/14/18 10:00 Dose: 40 mg Pneumococcal Polyvalent Vaccine (Pneumovax 23 Vaccine) 0.5 ml IM .ONCE ONE Stop: 06/15/18 10:01 - Labs Labs: 06/15/18 07:26 06/15/18 07:26 PT 10.3 SECONDS (9.7-12.2) 06/13/18 16:25 INR 0.9 06/13/18 16:25 APTT 33 SECONDS (21-34) 06/13/18 16:25 - Constitutional Appears: Non-toxic, No Acute Distress - Head Exam Head Exam: ATRAUMATIC, NORMAL INSPECTION, NORMOCEPHALIC - Eye Exam Eye Exam: EOMI, Normal appearance, PERRL Pupil Exam: NORMAL ACCOMODATION - ENT Exam ENT Exam: Mucous Membranes Moist, Normal Exam - Neck Exam Neck Exam: Full ROM, Normal Inspection. absent: Tenderness - Respiratory Exam Respiratory Exam: Clear to Ausculation Bilateral, NORMAL BREATHING PATTERN. absent: Accessory Muscle Use, Rales, Rhonchi, Wheezes, Respiratory Distress, Stridor - Cardiovascular Exam Cardiovascular Exam: REGULAR RHYTHM, +S1, +S2 - GI/Abdominal Exam GI & Abdominal Exam: Soft, Normal Bowel Sounds. absent: Distended, Firm, Guarding, Rigid, Tenderness, Rebound - Extremities Exam Extremities Exam: Full ROM, Normal Capillary Refill, Normal Inspection. absent: Calf Tenderness - Back Exam Back Exam: NORMAL INSPECTION - Neurological Exam Neurological Exam: Alert, Awake, Normal Gait, Oriented x3 - Psychiatric Exam Psychiatric exam: Normal Affect, Normal Mood - Skin Skin Exam: Dry, Intact, Normal Color, Warm Assessment and Plan - Assessment and Plan (Free Text) Assessment: 62 year old M with PMHx of anterior cervical discetomy and fusion (10 years ago) presenting with chronic dysphagia and acute onset odynophagia Plan: Odynophagia, acute Dysphagia, chronic -pt s/p ACDF (10 years ago) -Neurosurgery (Dr. Tomlin): no intervention at this time -ENT (Dr. 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 Givens): EGD relatively contraindicated at this time -consider EGD following ENT clearance -Thoracic Surgery (Dr. Haro) recs appreciated -CT cervical spine: Multilevel ACDF discectomy changes C4-C5 through the C6-C7 levels with 4 level anterior fixation plate attached to the cortical margins of C4 through C7. There is a small amount of air seen adjacent to the anterior inferior margin of the fixation plate at the level of the C6 screws and also along the inferior tip of the plate. Findings may be secondary to partially air-filled esophagus which abuts the inferior margin of the plate however normally, area should not abut the fixation plate which may be in fact exposed to the aerodigestive tract. Clinical correlation with nor surgical consultation recommended. There also appears to be narrowing of the exit foramina at C6-C7 level due to hypertrophic uncovertebral facets. -Chest CT (06/14): Ascending aortic aneurysm ~ 4.1 cm in AP dimension. -pt asymptomatic, continue to monitor -control of HTN to limiter further aortic expansion -surveillance imaging in 6 months -consider vascular surgery consult -NS @ 100cc/hr -Protonix 40mg IV daily -Toradol 15mg IVP q6 prn SOB, resolved -Hx of COPD -CXR: Hyperinflation-chronic changes of COPD. Mild biapical pleural thickening and parenchymal scarring - Duonebs q6 prn Tobacco Dependence -smoking cessation counseling -nicotine patch 14mg daily Alcohol Dependence -[facility] protocol -Ativan 1mg q6 prn -Discussed alcohol cessation Ppx, Diet, Disposition - DVT ppx: scds -GI ppx: protonix daily -PT on board -Diet: NPO -Dispo: F/U modified barium swallow eval tomorrow (06/16). Plan for biopsy of visualized L vocal cord lesion on , 06/17 per ENT recs. Case discussed with Dr. Julee Hall DO, PGY-1 <Reyes Ladd H - Last Filed: 06/15/18 16:22> Objective - Vital Signs/Intake and Output Vital Signs (last 24 hours): Temp Pulse Resp BP Pulse Ox 97.8 F 60 20 154/78 H 97 06/15/18 16:01 06/15/18 16:01 06/15/18 16:01 06/15/18 16:01 06/15/18 16:01 Intake and Output: 06/15/18 06/15/18 06:59 18:59 Intake Total 1600 1400 Output Total 1050 Balance 550 1400 - Medications Medications: Current Medications Acetaminophen (Tylenol 325mg Tab) 650 mg PO Q6 PRN PRN Reason: Pain, moderate (4-7) Albuterol/Ipratropium (Duoneb 3 Mg/0.5 Mg (3 Ml) Ud) 3 ml INH RQ6 PRN PRN Reason: Shortness of Breath Sodium Chloride (Sodium Chloride 0.9%) 1,000 mls @ 100 mls/hr IV .Q10H [facility] Last Admin: 06/15/18 01:20 Dose: 100 mls/hr Lorazepam (Ativan) 1 mg IVP Q6H PRN PRN Reason: Symptoms of alcohol withdrawl Nicotine (Nicoderm Cq) 1 patch TD DAILY [facility] Last Admin: 06/15/18 10:35 Dose: 1 patch Pantoprazole Sodium (Protonix Inj) 40 mg IVP DAILY [facility] Last Admin: 06/15/18 10:35 Dose: 40 mg - Labs Labs: 06/15/18 07:26 06/15/18 07:26 PT 10.3 SECONDS (9.7-12.2) 06/13/18 16:25 INR 0.9 06/13/18 16:25 APTT 33 SECONDS (21-34) 06/13/18 16:25 Attending/Attestation - Attestation I have personally seen and examined this patient.: Yes I have fully participated in the care of the patient.: Yes I have reviewed all pertinent clinical information, including history, physical exam and plan: Yes Notes (Text): 06/15/18 16:20 Medical attending: Patient was seen and examined by me as well. Reviewed the above note by the resident Also spoke with ENT and there is a lesion on the L vocal cord which will be biopsied this morning. Also a modfied barium swallow study has been ordered for tommorow as well The patient's was present and I also spoke with the patient son - his name is also Jimmie - over speakerphone and updated family as well Reyes Ladd
[2018-06-15] MEDS ORDERED: Pneumococcal 23-Valent Vaccine IM ONE (10:00)
[2018-06-15] MEDS ORDERED: Influenza Vaccine 60 mcg/0.5 mL SYR (4YR UP) IM ONE (10:00)
--- NOTE | 2018-06-15 15:09 | CP.PCM.PN ---
Subjective - Date & Time of Evaluation Date of Evaluation: 06/15/18 Time of Evaluation: 14:30 - Subjective Subjective: f/u neck pain. Sister is present. Chart reviewed. ENT and neurosurg noted. CT- noted. Reports drinking liquid and jello normal today Denies fever, chills, SZ, LOC, THOMAS, tremor, myalgia, hematuria Objective - Vital Signs/Intake and Output Vital Signs (last 24 hours): Temp Pulse Resp BP Pulse Ox 97.8 F 68 20 108/67 96 06/15/18 07:02 06/15/18 07:02 06/15/18 07:02 06/15/18 07:02 06/15/18 07:02 Intake and Output: 06/15/18 06/15/18 06:59 18:59 Intake Total 1600 1400 Output Total 1050 Balance 550 1400 - Medications Medications: Current Medications Acetaminophen (Tylenol 325mg Tab) 650 mg PO Q6 PRN PRN Reason: Pain, moderate (4-7) Albuterol/Ipratropium (Duoneb 3 Mg/0.5 Mg (3 Ml) Ud) 3 ml INH RQ6 PRN PRN Reason: Shortness of Breath Sodium Chloride (Sodium Chloride 0.9%) 1,000 mls @ 100 mls/hr IV .Q10H [facility] Last Admin: 06/15/18 01:20 Dose: 100 mls/hr Lorazepam (Ativan) 1 mg IVP Q6H PRN PRN Reason: Symptoms of alcohol withdrawl Nicotine (Nicoderm Cq) 1 patch TD DAILY [facility] Last Admin: 06/15/18 10:35 Dose: 1 patch Pantoprazole Sodium (Protonix Inj) 40 mg IVP DAILY [facility] Last Admin: 06/15/18 10:35 Dose: 40 mg - Labs Labs: 06/15/18 07:26 06/15/18 07:26 PT 10.3 SECONDS (9.7-12.2) 06/13/18 16:25 INR 0.9 06/13/18 16:25 APTT 33 SECONDS (21-34) 06/13/18 16:25 - Constitutional Appears: Non-toxic, Cachectic - Neck Exam Additional comments: no crepitus - Respiratory Exam Respiratory Exam: Clear to Ausculation Bilateral - Cardiovascular Exam Cardiovascular Exam: RRR - GI/Abdominal Exam GI & Abdominal Exam: Soft, Normal Bowel Sounds. absent: Tenderness - Extremities Exam Extremities Exam: absent: Calf Tenderness - Neurological Exam Neurological Exam: Alert, Oriented x3 Assessment and Plan (1) Chest pain Status: Acute (2) Neck pain Assessment & Plan: Neurosurg note seen. Does not think there is perforation. Scoped by ENT today- found vocal cord lesion. CT chest noted. Pt could not tolerate gastrograf swallow. He ate today jello and liquids. Modified swallow eval was ordered. Dr Kimball plans for larynx biopsy thur. Then consider EGD. Status: Acute
--- NOTE | 2018-06-15 22:08 | OP ---
PROCEDURE DATE: 06/15/2018 PREOPERATIVE DIAGNOSIS: Dysphagia. POSTOPERATIVE DIAGNOSIS: Dysphagia. PROCEDURE: Flexible laryngoscopy. SURGEON: Hai Kimball MD SIGNIFICANT FINDINGS: Left vocal cord lesion. DESCRIPTION OF PROCEDURE: The patient was brought into the room and placed in seated position. The nose was decongested using Afrin. Flexible laryngoscope was inserted into the nasal cavity, passed through the nasopharynx, oropharynx, and hypopharynx. The pharyngeal wall, base of tongue, vallecula, epiglottis, AE folds, false cords and true cords, arytenoids, and piriform sinuses were brought into view. A left vocal cord lesion was noted. It was erythematous. The vocal cords are mobile bilaterally. The scope was removed. The patient tolerated the procedure well. I recommend micro-direct laryngoscopy with biopsy. Hai Kimblal MD
[2018-06-16] MEDS: Sodium Chloride 0.9% 1,000 ML IV SCH ×3 (02:12→23:45)
[2018-06-16 07:13] LABS: BASO % 0.8 % (0.0-2.0); EOS # 0.1 K/uL (0.0-0.7); EOS % 2.1 % (0.0-4.0); HEMOGLOBIN 17.1 g/dL (12.0-18.0); LYMPH % 16.5 % (20.0-40.0); MEAN CORPUSCULAR HEMOGLOBIN 36.4 pg (27.0-31.0); MEAN CORPUSCULAR HGB CONC 34.3 g/dL (33.0-37.0); MEAN PLATELET VOLUME 7.1 fL (7.2-11.7); MONO # 0.5 K/uL (0.0-0.8); MONO % 8.9 % (0.0-10.0); NEUT # 4.1 K/uL (1.8-7.0); NEUT % 71.7 % (50.0-75.0); RBC 4.69 Mil/uL (4.40-5.90); RED CELL DISTRIBUTION WIDTH 13.5 % (11.5-14.5); WHITE BLOOD COUNT 5.8 K/uL (4.8-10.8)
--- NOTE | 2018-06-16 07:55 | CP.PCM.PN ---
<Hari Hall - Last Filed: 06/16/18 16:39> Subjective - Date & Time of Evaluation Date of Evaluation: 06/16/18 Time of Evaluation: 07:55 - Subjective Subjective: PGY-1 Medicine Progress Note for Dr. Ladd Patient seen and examined at bedside. No acute overnight events. Patient remains clinically same, endorses dysphagia which is chronic in nature and pain with swallowing. 12 pt ROS reviewed and otherwise negative. Objective - Vital Signs/Intake and Output Vital Signs (last 24 hours): Temp Pulse Resp BP Pulse Ox 97.8 F 66 20 123/71 94 L 06/16/18 00:00 06/16/18 00:00 06/16/18 00:00 06/16/18 00:00 06/16/18 00:00 Intake and Output: 06/16/18 06/16/18 06:59 18:59 Intake Total 800 800 Balance 800 800 - Medications Medications: Current Medications Acetaminophen (Tylenol 325mg Tab) 650 mg PO Q6 PRN PRN Reason: Pain, moderate (4-7) Albuterol/Ipratropium (Duoneb 3 Mg/0.5 Mg (3 Ml) Ud) 3 ml INH RQ6 PRN PRN Reason: Shortness of Breath Sodium Chloride (Sodium Chloride 0.9%) 1,000 mls @ 100 mls/hr IV .Q10H [facility] Last Admin: 06/16/18 04:07 Dose: Not Given Lorazepam (Ativan) 1 mg IVP Q6H PRN PRN Reason: Symptoms of alcohol withdrawl Nicotine (Nicoderm Cq) 1 patch TD DAILY [facility] Last Admin: 06/15/18 10:35 Dose: 1 patch Pantoprazole Sodium (Protonix Inj) 40 mg IVP DAILY [facility] Last Admin: 06/15/18 10:35 Dose: 40 mg - Labs Labs: 06/16/18 07:04 06/15/18 07:26 PT 10.3 SECONDS (9.7-12.2) 06/13/18 16:25 INR 0.9 06/13/18 16:25 APTT 33 SECONDS (21-34) 06/13/18 16:25 - Constitutional Appears: Non-toxic, No Acute Distress - Head Exam Head Exam: ATRAUMATIC, NORMAL INSPECTION, NORMOCEPHALIC - Eye Exam Eye Exam: EOMI, Normal appearance, PERRL Pupil Exam: NORMAL ACCOMODATION - ENT Exam ENT Exam: Mucous Membranes Moist, Normal Exam - Neck Exam Neck Exam: Full ROM, Normal Inspection - Respiratory Exam Respiratory Exam: Clear to Ausculation Bilateral, NORMAL BREATHING PATTERN. absent: Accessory Muscle Use, Rales, Rhonchi, Wheezes, Respiratory Distress, Stridor - Cardiovascular Exam Cardiovascular Exam: REGULAR RHYTHM, +S1, +S2 - GI/Abdominal Exam GI & Abdominal Exam: Soft, Normal Bowel Sounds. absent: Distended, Firm, Guarding, Rigid, Tenderness, Rebound - Extremities Exam Extremities Exam: Full ROM, Normal Capillary Refill, Normal Inspection - Back Exam Back Exam: NORMAL INSPECTION - Neurological Exam Neurological Exam: Alert, Awake, Oriented x3 - Skin Skin Exam: Dry, Intact, Normal Color, Warm Assessment and Plan - Assessment and Plan (Free Text) Assessment: 62 year old M with PMHx of anterior cervical discetomy and fusion (10 years ago) presenting with chronic dysphagia and acute onset odynophagia Plan: Odynophagia, acute Dysphagia, chronic -pt s/p ACDF (10 years ago) -Neurosurgery (Dr. Tomlin): no intervention at this time -ENT (Dr. 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 Givens): EGD relatively contraindicated at this time -consider EGD following ENT clearance -Thoracic Surgery (Dr. Haro) recs appreciated -CT cervical spine: Multilevel ACDF discectomy changes C4-C5 through the C6-C7 levels with 4 level anterior fixation plate attached to the cortical margins of C4 through C7. There is a small amount of air seen adjacent to the anterior inferior margin of the fixation plate at the level of the C6 screws and also along the inferior tip of the plate. Findings may be secondary to partially air-filled esophagus which abuts the inferior margin of the plate however normally, area should not abut the fixation plate which may be in fact exposed to the aerodigestive tract. Clinical correlation with nor surgical consultation recommended. There also appears to be narrowing of the exit foramina at C6-C7 level due to hypertrophic uncovertebral facets. -Chest CT (06/14): Ascending aortic aneurysm ~ 4.1 cm in AP dimension. -pt asymptomatic, continue to monitor -control of HTN to limiter further aortic expansion -surveillance imaging in 6 months -consider vascular surgery consult -NS @ 100cc/hr -Protonix 40mg IV daily -Toradol 15mg IVP q6 prn SOB, resolved -Hx of COPD -CXR: Hyperinflation-chronic changes of COPD. Mild biapical pleural thickening and parenchymal scarring. - Duonebs q6 prn Tobacco Dependence -smoking cessation counseling -nicotine patch 14mg daily Alcohol Dependence -[facility] protocol -Ativan 1mg q6 prn -Discussed alcohol cessation Ppx, Diet, Disposition - DVT ppx: scds -GI ppx: protonix daily -PT on board -Diet: puree, thin liquid, then NPO after MN -Dispo: Plan for biopsy of visualized L vocal cord lesion on , 06/17 per ENT recs. Case discussed with Dr. Julee Hall DO, PGY-1 <Reyes Ladd H - Last Filed: 06/16/18 17:39> Objective - Vital Signs/Intake and Output Vital Signs (last 24 hours): Temp Pulse Resp BP Pulse Ox 97.4 F L 64 20 153/87 H 97 06/16/18 16:00 06/16/18 16:00 06/16/18 16:00 06/16/18 16:00 06/16/18 16:00 Intake and Output: 06/16/18 06/16/18 06:59 18:59 Intake Total 800 800 Balance 800 800 - Medications Medications: Current Medications Acetaminophen (Tylenol 325mg Tab) 650 mg PO Q6 PRN PRN Reason: Pain, moderate (4-7) Albuterol/Ipratropium (Duoneb 3 Mg/0.5 Mg (3 Ml) Ud) 3 ml INH RQ6 PRN PRN Reason: Shortness of Breath Sodium Chloride (Sodium Chloride 0.9%) 1,000 mls @ 100 mls/hr IV .Q10H [facility] Last Admin: 06/16/18 04:07 Dose: Not Given Dextrose/Sodium Chloride (Dextrose 5%/0.9% Ns 1000 Ml) 1,000 mls @ 100 mls/hr IV .Q10H [facility] Stop: 06/16/18 21:36 Last Admin: 06/16/18 12:12 Dose: 100 mls/hr Lorazepam (Ativan) 1 mg IVP Q6H PRN PRN Reason: Symptoms of alcohol withdrawl Nicotine (Nicoderm Cq) 1 patch TD DAILY [facility] Last Admin: 06/16/18 10:08 Dose: 1 patch Pantoprazole Sodium (Protonix Inj) 40 mg IVP DAILY [facility] Last Admin: 06/16/18 10:08 Dose: 40 mg - Labs Labs: 06/16/18 07:04 06/16/18 07:04 PT 10.3 SECONDS (9.7-12.2) 06/13/18 16:25 INR 0.9 06/13/18 16:25 APTT 33 SECONDS (21-34) 06/13/18 16:25 Attending/Attestation - Attestation I have personally seen and examined this patient.: Yes I have fully participated in the care of the patient.: Yes I have reviewed all pertinent clinical information, including history, physical exam and plan: Yes Notes (Text): 06/16/18 17:33 Medical attending: Patient was seen and examined by me with the medical residents. The patient was not in any acute distress when I came and saw. Shortly thereafter he went for the modified barium swallow and I spoke with Zainab who explained that he can swallow but that needs to be on a pureed diet and thicken liquids. Patient is pending biopsy tommorow on the left vocal cord Reyes Ladd
[2018-06-16 08:02] LABS: ALB/GLOB RATIO 1.2 (1.0-2.1); ALBUMIN 3.5 g/dL (3.5-5.0); ALT/SGPT 23 U/L (21-72); AST/SGOT 28 U/L (17-59); BLOOD UREA NITROGEN 11 mg/dL (9-20); CALCIUM 8.3 mg/dl (8.6-10.4); GFR NON-AFRICAN AMERICAN > 60
[2018-06-16] MEDS ORDERED: Dextrose 5%/0.9% NS 1,000 ML IV ONE (11:37)
--- NOTE | 2018-06-16 13:56 | RAD ---
Date of service: 06/16/2018 PROCEDURE: Modified barium swallow study. HISTORY: Aspiration on regular barium swallow COMPARISON: None available. TECHNIQUE: Under fluoroscopic guidance, the patient ingested various consistencies of barium. Examination was performed in conjunction with speech pathology department. FINDINGS: On the lateral projection, there is mild thickening of the epiglottis. The airways are patent. There are large anterior osteophytes at C3-4. Status post ACDF from C4-5 to C6-7. There was no evidence of aspiration. There was deep laryngeal penetration with thin liquid, puree and solid consistency barium. There was residual barium in the piriform sinuses which was cleared by coughing. The total fluoroscopic time was 2.8 minutes. IMPRESSION: No aspiration observed. Deep laryngeal penetration with thin liquid, puree and solid consistency barium. Please refer to the detailed report and recommendations of the speech pathologist.
--- NOTE | 2018-06-16 17:48 | CARD ---
APPROVED REPORT Date of service: 06/13/2018 EKG Measurement Heart [id number] <Conclusion> Normal sinus rhythm Normal ECG
[2018-06-17] MEDS: Sodium Chloride 0.9% 1,000 ML IV SCH ×3 (06:33→13:17)
--- NOTE | 2018-06-17 07:29 | CP.PCM.PN ---
<Hari Hall - Last Filed: 06/17/18 14:29> Subjective - Date & Time of Evaluation Date of Evaluation: 06/17/18 Time of Evaluation: 07:28 - Subjective Subjective: PGY-1 Medicine Progress Note for Dr. Ladd Patient seen and examined at bedside this AM. No acute overnight events reported. Vocal cord biopsy cancelled today, rescheduled for tomorrow. Patient was made aware. Patient tolerated pureed diet well with no complications. Continues to have dysphagia, chronic in nature. No other acute somatic complaints. Objective - Vital Signs/Intake and Output Vital Signs (last 24 hours): Temp Pulse Resp BP Pulse Ox 98.1 F 60 20 146/88 96 06/17/18 00:00 06/17/18 00:00 06/17/18 00:00 06/17/18 00:00 06/17/18 00:00 Intake and Output: 06/17/18 06/17/18 06:59 18:59 Intake Total 1600 Balance 1600 - Medications Medications: Current Medications Acetaminophen (Tylenol 325mg Tab) 650 mg PO Q6 PRN PRN Reason: Pain, moderate (4-7) Albuterol/Ipratropium (Duoneb 3 Mg/0.5 Mg (3 Ml) Ud) 3 ml INH RQ6 PRN PRN Reason: Shortness of Breath Sodium Chloride (Sodium Chloride 0.9%) 1,000 mls @ 100 mls/hr IV .Q10H [facility] Last Admin: 06/17/18 06:33 Dose: 100 mls/hr Lorazepam (Ativan) 1 mg IVP Q6H PRN PRN Reason: Symptoms of alcohol withdrawl Nicotine (Nicoderm Cq) 1 patch TD DAILY [facility] Last Admin: 06/16/18 10:08 Dose: 1 patch Pantoprazole Sodium (Protonix Inj) 40 mg IVP DAILY [facility] Last Admin: 06/16/18 10:08 Dose: 40 mg - Labs Labs: 06/16/18 07:04 06/16/18 07:04 PT 10.3 SECONDS (9.7-12.2) 06/13/18 16:25 INR 0.9 06/13/18 16:25 APTT 33 SECONDS (21-34) 06/13/18 16:25 - Constitutional Appears: Non-toxic, No Acute Distress - Head Exam Head Exam: ATRAUMATIC, NORMAL INSPECTION, NORMOCEPHALIC - Eye Exam Eye Exam: EOMI, Normal appearance, PERRL Pupil Exam: NORMAL ACCOMODATION - ENT Exam ENT Exam: Mucous Membranes Moist, Normal Exam - Neck Exam Neck Exam: Full ROM, Normal Inspection. absent: Tenderness - Respiratory Exam Respiratory Exam: Clear to Ausculation Bilateral, NORMAL BREATHING PATTERN. absent: Accessory Muscle Use, Respiratory Distress - Cardiovascular Exam Cardiovascular Exam: REGULAR RHYTHM, +S1, +S2 - GI/Abdominal Exam GI & Abdominal Exam: Soft, Normal Bowel Sounds. absent: Distended, Firm, Guarding, Rigid, Tenderness, Rebound - Extremities Exam Extremities Exam: Full ROM, Normal Capillary Refill, Normal Inspection - Back Exam Back Exam: NORMAL INSPECTION - Neurological Exam Neurological Exam: Alert, Awake, Oriented x3 - Psychiatric Exam Psychiatric exam: Normal Affect, Normal Mood - Skin Skin Exam: Dry, Intact, Normal Color, Warm Assessment and Plan - Assessment and Plan (Free Text) Assessment: 62 year old M with PMHx of anterior cervical discetomy and fusion (10 years ago) presenting with chronic dysphagia and acute onset odynophagia Plan: Odynophagia, acute Dysphagia, chronic -pt s/p ACDF (10 years ago) -Modified barium swallow (06/16): no aspiration noted -diet recommendations: puree, thin liquid -Neurosurgery (Dr. Tomlin): no intervention at this time -Thoracic Surgery (Dr. Haro) recs appreciated -ENT (Dr. Kimball) -plan for biopsy of vocal cord lesion tomorrow, 06/18 -f/u GI (Dr. Givens) recs -consider EGD following bx -CT cervical spine: Multilevel ACDF discectomy changes C4-C5 through the C6-C7 levels with 4 level anterior fixation plate attached to the cortical margins of C4 through C7. There is a small amount of air seen adjacent to the anterior inferior margin of the fixation plate at the level of the C6 screws and also along the inferior tip of the plate. Findings may be secondary to partially air -filled esophagus which abuts the inferior margin of the plate however normally, area should not abut the fixation plate which may be in fact exposed to the aerodigestive tract. Clinical correlation with nor surgical consultation recommended. There also appears to be narrowing of the exit foramina at C6-C7 level due to hypertrophic uncovertebral facets. -Chest CT (06/14): Ascending aortic aneurysm ~ 4.1 cm in AP dimension. -pt asymptomatic, continue to monitor -control of HTN to limiter further aortic expansion -surveillance imaging in 6 months -consider vascular surgery consult -NS @ 100cc/hr -Protonix 40mg IV daily -Toradol 15mg IVP q6 prn SOB, resolved -Hx of COPD -CXR: Hyperinflation-chronic changes of COPD. Mild biapical pleural thickening and parenchymal scarring. - Duonebs q6 prn Tobacco Dependence -smoking cessation counseling -nicotine patch 14mg daily Alcohol Dependence -[facility] protocol -Ativan 1mg q6 prn -Discussed alcohol cessation Ppx, Diet, Disposition - DVT ppx: scds -GI ppx: pepcid 20 mg PO daily -PT on board -Diet: puree, thin liquid, then NPO after MN -Dispo: Vocal cord bx scheduled tomorrow, 06/18. NPO after MN. F/U GI recs about possible EGD afterwards. Case discussed with Dr. Julee Hall DO, PGY-1 <Reyes Ladd - Last Filed: 06/17/18 15:45> Objective - Vital Signs/Intake and Output Vital Signs (last 24 hours): Temp Pulse Resp BP Pulse Ox 98.5 F 70 20 163/96 H 97 06/17/18 08:00 06/17/18 08:00 06/17/18 08:00 06/17/18 08:00 06/17/18 08:00 Intake and Output: 06/17/18 06/17/18 06:59 18:59 Intake Total 1600 Balance 1600 - Medications Medications: Current Medications Acetaminophen (Tylenol 325mg Tab) 650 mg PO Q6 PRN PRN Reason: Pain, moderate (4-7) Albuterol/Ipratropium (Duoneb 3 Mg/0.5 Mg (3 Ml) Ud) 3 ml INH RQ6 PRN PRN Reason: Shortness of Breath Famotidine (Pepcid) 20 mg PO DAILY [facility] Lorazepam (Ativan) 1 mg IVP Q6H PRN PRN Reason: Symptoms of alcohol withdrawl Nicotine (Nicoderm Cq) 1 patch TD DAILY [facility] Last Admin: 06/17/18 09:47 Dose: 1 patch - Labs Labs: 06/17/18 07:12 06/17/18 07:12 PT 10.3 SECONDS (9.7-12.2) 06/13/18 16:25 INR 0.9 06/13/18 16:25 APTT 33 SECONDS (21-34) 06/13/18 16:25 Attending/Attestation - Attestation I have personally seen and examined this patient.: Yes I have fully participated in the care of the patient.: Yes I have reviewed all pertinent clinical information, including history, physical exam and plan: Yes Notes (Text): 06/17/18 15:38 Medical attending: Patient was seen and examined by me, reviewed the above note by the resident The patient's biopsy was moved to tomorrow morning. Yesterday had the modified barium swallow and advised to use a pureed diet with thicken fluid. He tells us he's far been able to tolerate this The patient denied having abdominal pain, denied chest pain, denied shortness of breath, denied Reyes Ladd
[2018-06-17 07:33] LABS: BASO % 0.9 % (0.0-2.0); EOS # 0.1 K/uL (0.0-0.7); EOS % 2.9 % (0.0-4.0); HEMOGLOBIN 18.5 g/dL (12.0-18.0); LYMPH # 1.2 K/uL (1.0-4.3); LYMPH % 25.7 % (20.0-40.0); MEAN CELL VOLUME 105.9 fL (80.0-94.0); MEAN CORPUSCULAR HEMOGLOBIN 36.5 pg (27.0-31.0); MEAN CORPUSCULAR HGB CONC 34.4 g/dL (33.0-37.0); MEAN PLATELET VOLUME 7.1 fL (7.2-11.7); MONO # 0.5 K/uL (0.0-0.8); MONO % 10.9 % (0.0-10.0); NEUT # 2.8 K/uL (1.8-7.0); NEUT % 59.6 % (50.0-75.0); NRBC % 0.4 % (0.0-2.0); RBC 5.06 Mil/uL (4.40-5.90); RED CELL DISTRIBUTION WIDTH 13.7 % (11.5-14.5); WHITE BLOOD COUNT 4.6 K/uL (4.8-10.8)
[2018-06-17 08:15] LABS: ALB/GLOB RATIO 1.2 (1.0-2.1); ALBUMIN 4.3 g/dL (3.5-5.0); ALT/SGPT 19 U/L (21-72); AST/SGOT 37 U/L (17-59); BLOOD UREA NITROGEN 6 mg/dL (9-20); CALCIUM 9.2 mg/dl (8.6-10.4); GFR NON-AFRICAN AMERICAN > 60
--- NOTE | 2018-06-17 10:56 | CP.PCM.PN ---
Subjective - Date & Time of Evaluation Date of Evaluation: 06/17/18 Time of Evaluation: 10:51 - Subjective Subjective: GI F/u. for neck pain. I came to see pt today expecting him to be NPO for larynx biopsy. But that was cancelled and pt ate. He reports feeling much better. Swallowing better. Feels stronger. Swallowing better. Less neck pain. Modified barium swallow showed laryngeal penetration, but no aspiration. Denies CP, SOb, fever, chills, THOMAS, hematuria, hemoptysis. Sz, tremor Objective - Vital Signs/Intake and Output Vital Signs (last 24 hours): Temp Pulse Resp BP Pulse Ox 98.5 F 70 20 163/96 H 97 06/17/18 08:00 06/17/18 08:00 06/17/18 08:00 06/17/18 08:00 06/17/18 08:00 Intake and Output: 06/17/18 06/17/18 06:59 18:59 Intake Total 1600 Balance 1600 - Medications Medications: Current Medications Acetaminophen (Tylenol 325mg Tab) 650 mg PO Q6 PRN PRN Reason: Pain, moderate (4-7) Albuterol/Ipratropium (Duoneb 3 Mg/0.5 Mg (3 Ml) Ud) 3 ml INH RQ6 PRN PRN Reason: Shortness of Breath Sodium Chloride (Sodium Chloride 0.9%) 1,000 mls @ 100 mls/hr IV .Q10H [facility] Last Admin: 06/17/18 10:12 Dose: Not Given Lorazepam (Ativan) 1 mg IVP Q6H PRN PRN Reason: Symptoms of alcohol withdrawl Nicotine (Nicoderm Cq) 1 patch TD DAILY [facility] Last Admin: 06/17/18 09:47 Dose: 1 patch Pantoprazole Sodium (Protonix Inj) 40 mg IVP DAILY [facility] Last Admin: 06/17/18 09:48 Dose: 40 mg - Labs Labs: 06/17/18 07:12 06/17/18 07:12 PT 10.3 SECONDS (9.7-12.2) 06/13/18 16:25 INR 0.9 06/13/18 16:25 APTT 33 SECONDS (21-34) 06/13/18 16:25 - Constitutional Appears: Non-toxic - Respiratory Exam Respiratory Exam: Clear to Ausculation Bilateral - Cardiovascular Exam Cardiovascular Exam: RRR - GI/Abdominal Exam GI & Abdominal Exam: Soft, Normal Bowel Sounds. absent: Guarding, Tenderness, Mass - Extremities Exam Extremities Exam: absent: Calf Tenderness - Neurological Exam Neurological Exam: Alert, Awake, Oriented x3 Assessment and Plan (1) Chest pain Status: Acute (2) Neck pain Assessment & Plan: Barium shows no sign of perforation Larynx biopsy cancelled today. On sched for thursday. Status: Acute (3) Dysphagia Assessment & Plan: Pt reports chronic dysphagia,. Modified barium= no aspiration. Swallowing better now. Rec- diet- soft change PPI to p.o. Status: Acute
[2018-06-18 07:30] LABS: BASO % 0.7 % (0.0-2.0); EOS # 0.1 K/uL (0.0-0.7); EOS % 2.9 % (0.0-4.0); LYMPH # 0.9 K/uL (1.0-4.3); LYMPH % 25.4 % (20.0-40.0); MEAN CELL VOLUME 104.7 fL (80.0-94.0); MEAN CORPUSCULAR HEMOGLOBIN 36.6 pg (27.0-31.0); MEAN PLATELET VOLUME 7.2 fL (7.2-11.7); MONO # 0.5 K/uL (0.0-0.8); MONO % 12.6 % (0.0-10.0); NEUT # 2.1 K/uL (1.8-7.0); NEUT % 58.4 % (50.0-75.0); NRBC % 0.1 % (0.0-2.0); RBC 4.64 Mil/uL (4.40-5.90); RED CELL DISTRIBUTION WIDTH 13.4 % (11.5-14.5); WHITE BLOOD COUNT 3.6 K/uL (4.8-10.8)
[2018-06-18 07:51] LABS: ALB/GLOB RATIO 1.2 (1.0-2.1); ALBUMIN 3.6 g/dL (3.5-5.0); ALT/SGPT 14 U/L (21-72); AST/SGOT 29 U/L (17-59); BLOOD UREA NITROGEN 5 mg/dL (9-20); CALCIUM 8.9 mg/dl (8.6-10.4); GFR NON-AFRICAN AMERICAN > 60
--- NOTE | 2018-06-18 09:30 | CP.PCM.PN ---
<Hari Hall - Last Filed: 06/18/18 14:33> Subjective - Date & Time of Evaluation Date of Evaluation: 06/18/18 Time of Evaluation: 09:30 - Subjective Subjective: PGY-1 Medicine Progress Note for Dr. Ladd Patient seen and examined at bedside prior to OR, in no acute distress. No overnight events reported, no acute somatic complaints. Scheduled for vocal cord biopsy this AM with possible EGD to follow. Will f/u GI recs. Objective - Vital Signs/Intake and Output Vital Signs (last 24 hours): Temp Pulse Resp BP Pulse Ox 97.8 F 60 20 148/88 97 06/18/18 00:00 06/18/18 00:00 06/18/18 00:00 06/18/18 00:00 06/18/18 00:00 Intake and Output: 06/18/18 06/18/18 06:59 18:59 Intake Total 1900 Output Total 2200 Balance -300 - Medications Medications: Current Medications Acetaminophen (Tylenol 325mg Tab) 650 mg PO Q6 PRN PRN Reason: Pain, moderate (4-7) Albuterol/Ipratropium (Duoneb 3 Mg/0.5 Mg (3 Ml) Ud) 3 ml INH RQ6 PRN PRN Reason: Shortness of Breath Famotidine (Pepcid) 20 mg PO DAILY [facility] Last Admin: 06/18/18 09:11 Dose: 20 mg Lorazepam (Ativan) 1 mg IVP Q6H PRN PRN Reason: Symptoms of alcohol withdrawl Nicotine (Nicoderm Cq) 1 patch TD DAILY [facility] Last Admin: 06/18/18 09:11 Dose: 1 patch - Labs Labs: 06/18/18 07:11 06/18/18 07:11 PT 10.3 SECONDS (9.7-12.2) 06/13/18 16:25 INR 0.9 06/13/18 16:25 APTT 33 SECONDS (21-34) 06/13/18 16:25 - Constitutional Appears: Non-toxic, No Acute Distress - Head Exam Head Exam: ATRAUMATIC, NORMAL INSPECTION, NORMOCEPHALIC - Eye Exam Eye Exam: EOMI, Normal appearance Pupil Exam: NORMAL ACCOMODATION - ENT Exam ENT Exam: Mucous Membranes Moist, Normal Exam - Neck Exam Neck Exam: Full ROM, Normal Inspection - Respiratory Exam Respiratory Exam: Clear to Ausculation Bilateral, NORMAL BREATHING PATTERN. absent: Accessory Muscle Use, Rales, Rhonchi, Wheezes, Respiratory Distress, Stridor - Cardiovascular Exam Cardiovascular Exam: REGULAR RHYTHM, +S1, +S2 - GI/Abdominal Exam GI & Abdominal Exam: Soft, Normal Bowel Sounds. absent: Distended, Firm, Guarding, Rigid, Tenderness, Rebound - Extremities Exam Extremities Exam: Full ROM, Normal Capillary Refill, Normal Inspection. absent: Calf Tenderness, Pedal Edema - Back Exam Back Exam: NORMAL INSPECTION - Neurological Exam Neurological Exam: Alert, Awake, Oriented x3 - Skin Skin Exam: Dry, Intact, Normal Color, Warm Assessment and Plan - Assessment and Plan (Free Text) Assessment: 62 year old M with PMHx of anterior cervical discetomy and fusion (10 years ago) presenting with chronic dysphagia and acute onset odynophagia Plan: Odynophagia, acute Dysphagia, chronic -pt s/p ACDF (10 years ago) -Modified barium swallow (06/16): no aspiration noted -diet recommendations: puree, thin liquid -Neurosurgery (Dr. Tomlin): no intervention at this time -Thoracic Surgery (Dr. Haro) recs appreciated -ENT (Dr. Kimball) -plan for biopsy of vocal cord lesion today, 06/18 -f/u GI (Dr. Givens) recs -consider EGD following bx -CT cervical spine: Multilevel ACDF discectomy changes C4-C5 through the C6-C7 levels with 4 level anterior fixation plate attached to the cortical margins of C4 through C7. There is a small amount of air seen adjacent to the anterior inferior margin of the fixation plate at the level of the C6 screws and also along the inferior tip of the plate. Findings may be secondary to partially air-filled esophagus which abuts the inferior margin of the plate however normally, area should not abut the fixation plate which may be in fact exposed to the aerodigestive tract. Clinical correlation with nor surgical consultation recommended. There also appears to be narrowing of the exit foramina at C6-C7 level due to hypertrophic uncovertebral facets. -Chest CT (06/14): Ascending aortic aneurysm ~ 4.1 cm in AP dimension. -pt asymptomatic, continue to monitor -control of HTN to limiter further aortic expansion -surveillance imaging in 6 months -consider vascular surgery consult -NS @ 100cc/hr -Protonix 40mg IV daily -Toradol 15mg IVP q6 prn SOB, resolved -Hx of COPD -CXR: Hyperinflation-chronic changes of COPD. Mild biapical pleural thickening and parenchymal scarring. - Duonebs q6 prn Tobacco Dependence -smoking cessation counseling -nicotine patch 14mg daily Alcohol Dependence -[facility] protocol -Ativan 1mg q6 prn -Discussed alcohol cessation Ppx, Diet, Disposition - DVT ppx: scds -GI ppx: pepcid 20 mg PO daily -PT on board -Diet: puree, thin liquid, then NPO after MN -Dispo: Vocal cord bx scheduled this AM. F/U GI recs about possible EGD afterwards. Case discussed with Dr. Julee Hall DO, PGY-1 <Reyes Ladd - Last Filed: 06/18/18 15:52> Objective - Vital Signs/Intake and Output Vital Signs (last 24 hours): Temp Pulse Resp BP Pulse Ox 97.9 F 60 15 146/90 99 06/18/18 13:45 06/18/18 13:45 06/18/18 13:45 06/18/18 13:45 06/18/18 13:45 Intake and Output: 06/18/18 06/18/18 06:59 18:59 Intake Total 1900 650 Output Total 2200 Balance -300 650 - Medications Medications: Current Medications Acetaminophen (Tylenol 325mg Tab) 650 mg PO Q6 PRN PRN Reason: Pain, moderate (4-7) Albuterol/Ipratropium (Duoneb 3 Mg/0.5 Mg (3 Ml) Ud) 3 ml INH RQ6 PRN PRN Reason: Shortness of Breath Famotidine (Pepcid) 20 mg PO DAILY [facility] Last Admin: 06/18/18 09:11 Dose: 20 mg Lorazepam (Ativan) 1 mg IVP Q6H PRN PRN Reason: Symptoms of alcohol withdrawl Nicotine (Nicoderm Cq) 1 patch TD DAILY [facility] Last Admin: 06/18/18 09:11 Dose: 1 patch - Labs Labs: 06/18/18 07:11 06/18/18 07:11 PT 10.3 SECONDS (9.7-12.2) 06/13/18 16:25 INR 0.9 06/13/18 16:25 APTT 33 SECONDS (21-34) 06/13/18 16:25 Attending/Attestation - Attestation I have personally seen and examined this patient.: Yes I have fully participated in the care of the patient.: Yes I have reviewed all pertinent clinical information, including history, physical exam and plan: Yes Notes (Text): 06/18/18 15:40 Medical attending: Patient was seen and examined by me. Agree with the above note by the resident Patient was seen and examined by me with the medical residents earlier in the morning The patient was not in any acute distress. He was looking forward to having the biopsy done The denied having any pain, denied shortness of breath. Currently NPO this morning, however he reports tolerating the diet Reyes Ladd
[2018-06-18] MEDS ORDERED: Midazolam 2 MG/2 ML VIAL ONE ×2 (10:41)
[2018-06-18] MEDS ORDERED: Propofol 10 mg/ml Inj (20 ML) ONE ×2 (10:41→11:04)
[2018-06-18] MEDS ORDERED: Dexamethasone 4 mg/1 ml ONE (10:51)
[2018-06-18] MEDS ORDERED: ceFAZolin 1 gm in NS 1 GM/100 ML BAG IVPB ONE (10:51)
[2018-06-18] MEDS ORDERED: Lactated Ringer's 1,000 ML IV ONE (11:40)
[2018-06-18] MEDS ORDERED: Labetalol 5mg/ml (4ml) IVP STA (12:05)
--- NOTE | 2018-06-18 15:21 | CP.PCM.PN ---
Subjective - Date & Time of Evaluation Date of Evaluation: 06/18/18 Time of Evaluation: 15:19 - Subjective Subjective: GI Service Swallowing his food much better Had biopsy of larynx tumor today by Dr Kimball Objective - Vital Signs/Intake and Output Vital Signs (last 24 hours): Temp Pulse Resp BP Pulse Ox 97.9 F 60 15 146/90 99 06/18/18 13:45 06/18/18 13:45 06/18/18 13:45 06/18/18 13:45 06/18/18 13:45 Intake and Output: 06/18/18 06/18/18 06:59 18:59 Intake Total 1900 650 Output Total 2200 Balance -300 650 - Medications Medications: Current Medications Acetaminophen (Tylenol 325mg Tab) 650 mg PO Q6 PRN PRN Reason: Pain, moderate (4-7) Albuterol/Ipratropium (Duoneb 3 Mg/0.5 Mg (3 Ml) Ud) 3 ml INH RQ6 PRN PRN Reason: Shortness of Breath Famotidine (Pepcid) 20 mg PO DAILY [facility] Last Admin: 06/18/18 09:11 Dose: 20 mg Lorazepam (Ativan) 1 mg IVP Q6H PRN PRN Reason: Symptoms of alcohol withdrawl Morphine Sulfate (Morphine) 1 mg IVP Q10M PRN PRN Reason: Pain, moderate (4-7) Stop: 06/18/18 15:29 Nicotine (Nicoderm Cq) 1 patch TD DAILY [facility] Last Admin: 06/18/18 09:11 Dose: 1 patch - Labs Labs: 06/18/18 07:11 06/18/18 07:11 PT 10.3 SECONDS (9.7-12.2) 06/13/18 16:25 INR 0.9 06/13/18 16:25 APTT 33 SECONDS (21-34) 06/13/18 16:25 - Constitutional Appears: Cachectic - Respiratory Exam Respiratory Exam: NORMAL BREATHING PATTERN - Cardiovascular Exam Cardiovascular Exam: REGULAR RHYTHM Assessment and Plan (1) Neck pain Assessment & Plan: Resolving neck/throat pain and resolving dysphagia Await Larynx biopsy Advance diet as tolerated No immediate need for EGD, pt at his baseline Status: Acute
[2018-06-18 16:26] VITALS: RESP 20
--- NOTE | 2018-06-18 19:18 | OP ---
PROCEDURE DATE: 06/18/2018 PREOPERATIVE DIAGNOSIS: Left vocal cord lesion. POSTOPERATIVE DIAGNOSIS: Left vocal cord lesion. PROCEDURE: Direct laryngoscopy and biopsy. SIGNIFICANT FINDINGS: Left vocal cord lesion. DESCRIPTION OF PROCEDURE: The patient was brought into room and placed in the supine position. Anesthesia was initiated through an ET tube. Shoulder roll was placed. Neck extended. The patient was draped in the usual manner. Tooth guard was placed over the upper teeth in order to protect them. A direct laryngoscope was inserted through the oral cavity, passed to oropharynx and hypopharynx. The pharyngeal agiurre, base of tongue, vallecula, epiglottis, AE folds, false cords, true cords, piriform sinuses were brought into view. Left vocal cord lesion was noted. Multiple biopsies of the left vocal cord lesion was taken. Bleeding was controlled using cold water irrigation. The direct laryngoscope was removed. The tooth guard was removed. The patient was taken off anesthesia and taken to the recovery room in stable manner. Hai Kimball MD
[2018-06-19 07:18] LABS: BASO % 0.4 % (0.0-2.0); EOS % 0.3 % (0.0-4.0); HEMOGLOBIN 17.3 g/dL (12.0-18.0); LYMPH # 1.1 K/uL (1.0-4.3); LYMPH % 14.2 % (20.0-40.0); MEAN CELL VOLUME 105.2 fL (80.0-94.0); MEAN CORPUSCULAR HEMOGLOBIN 36.1 pg (27.0-31.0); MEAN CORPUSCULAR HGB CONC 34.3 g/dL (33.0-37.0); MEAN PLATELET VOLUME 7.4 fL (7.2-11.7); MONO # 0.8 K/uL (0.0-0.8); MONO % 10.6 % (0.0-10.0); NEUT # 5.7 K/uL (1.8-7.0); NEUT % 74.5 % (50.0-75.0); RBC 4.8 Mil/uL (4.40-5.90); RED CELL DISTRIBUTION WIDTH 13.5 % (11.5-14.5)
[2018-06-19 07:23] LABS: BLOOD UREA NITROGEN 7 mg/dL (9-20); CALCIUM 9.6 mg/dl (8.6-10.4); GFR NON-AFRICAN AMERICAN > 60; WHITE BLOOD COUNT 7.6 K/uL (4.8-10.8)
[2018-06-19 07:55] VITALS: BP 119/76; PULSE 65; TEMP 98; O2SAT 98
--- NOTE | 2018-06-19 11:14 | CP.PCM.DIS ---
<Damian Hull - Last Filed: 06/19/18 19:11> Provider - Provider Date of Admission: 06/13/18 13:56 Attending physician: Reyes Ladd DO Primary care physician: None Consults: 06/13/18 12:54 Physician Consult Routine Comment: Consulting Provider: Sreedhar Tomlin Consulting Physician: Sreedhar Tomlin Reason for Consult: plate in neck movement to ?esophagus 06/13/18 14:04 Physician Consult Routine Comment: Consulting Provider: Gold Givens Consulting Physician: Gold Givens Reason for Consult: ?perf 06/15/18 09:47 ENT [Otolaryngology Consult] Routine Consulting Provider: Hai Kimball Consulting Physician: Hai Kimball Reason for Consult: odynophagia, dysphagia. clearance for egd, per GI Time Spent in preparation of Discharge (in minutes): 40 Diagnosis - Discharge Diagnosis (1) Lesion of vocal cord Status: Acute (2) Dysphagia Status: Chronic (3) Alcohol dependence Status: Chronic (4) Tobacco dependence Status: Chronic Hospital Course - Lab Results Lab Results: Micro Results 06/13/18 12:10 Blood Blood Culture - Final NO GROWTH AFTER 5 DAYS 06/13/18 12:10 Blood Gram Stain - Final TEST NOT PERFORMED 06/13/18 12:10 Blood Blood Culture - Final NO GROWTH AFTER 5 DAYS 06/13/18 12:10 Blood Gram Stain - Final TEST NOT PERFORMED Most Recent Lab Values WBC 7.6 K/uL (4.8-10.8) D 06/19/18 07:04 RBC 4.80 Mil/uL (4.40-5.90) 06/19/18 07:04 Hgb 17.3 g/dL (12.0-18.0) 06/19/18 07:04 Hct 50.5 % (35.0-51.0) 06/19/18 07:04 MCV 105.2 fL (80.0-94.0) H 06/19/18 07:04 MCH 36.1 pg (27.0-31.0) H 06/19/18 07:04 MCHC 34.3 g/dL (33.0-37.0) 06/19/18 07:04 RDW 13.5 % (11.5-14.5) 06/19/18 07:04 Plt Count 312 K/uL (130-400) 06/19/18 07:04 MPV 7.4 fL (7.2-11.7) 06/19/18 07:04 Neut % (Auto) 74.5 % (50.0-75.0) 06/19/18 07:04 Lymph % (Auto) 14.2 % (20.0-40.0) L 06/19/18 07:04 Greer % (Auto) 10.6 % (0.0-10.0) H 06/19/18 07:04 Eos % (Auto) 0.3 % (0.0-4.0) 06/19/18 07:04 Baso % (Auto) 0.4 % (0.0-2.0) 06/19/18 07:04 Neut # (Auto) 5.7 K/uL (1.8-7.0) 06/19/18 07:04 Lymph # (Auto) 1.1 K/uL (1.0-4.3) 06/19/18 07:04 Greer # (Auto) 0.8 K/uL (0.0-0.8) 06/19/18 07:04 Eos # (Auto) 0.0 K/uL (0.0-0.7) 06/19/18 07:04 Baso # (Auto) 0.0 K/uL (0.0-0.2) 06/19/18 07:04 Neutrophils % (Manual) 78 % (50-75) H 06/13/18 09:45 Band Neutrophils % 2 % (0-2) 06/13/18 09:45 Lymphocytes % (Manual) 10 % (20-40) L 06/13/18 09:45 Reactive Lymphs % 4 % (0-0) H 06/13/18 09:45 Monocytes % (Manual) 6 % (0-10) 06/13/18 09:45 Platelet Estimate Normal (NORMAL) 06/13/18 09:45 Anisocytosis (manual) Slight 06/13/18 09:45 Macrocytosis (manual) Slight 06/13/18 09:45 Ovalocytes Slight 06/13/18 09:45 Stomatocytes Slight 06/13/18 09:45 PT 10.3 SECONDS (9.7-12.2) 06/13/18 16:25 INR 0.9 06/13/18 16:25 APTT 33 SECONDS (21-34) 06/13/18 16:25 pO2 50 mm/Hg (30-55) 06/13/18 13:05 VBG pH 7.36 (7.32-7.43) 06/13/18 13:05 VBG pCO2 39 mmHg (40-60) L 06/13/18 13:05 VBG HCO3 22.1 mmol/L 06/13/18 13:05 VBG Total CO2 23.2 mmol/L (22-28) 06/13/18 13:05 VBG O2 Sat (Calc) 87.7 % (40-65) H 06/13/18 13:05 VBG Base Excess -3.1 mmol/L (0.0-2.0) L 06/13/18 13:05 VBG Potassium 3.2 mmol/L (3.6-5.2) L 06/13/18 13:05 Sodium 140.0 mmol/l (132-148) 06/13/18 13:05 Chloride 112.0 mmol/L (98-107) H 06/13/18 13:05 Glucose 86 mg/dl (75-110) 06/13/18 13:05 Lactate 1.0 mmol/L (0.7-2.1) 06/13/18 13:05 Sodium 138 mmol/L (132-148) 06/19/18 07:04 Potassium 3.6 mmol/L (3.6-5.2) 06/19/18 07:04 Chloride 99 mmol/L (98-107) 06/19/18 07:04 Carbon Dioxide 30 mmol/L (22-30) 06/19/18 07:04 Anion Gap 12 (10-20) 06/19/18 07:04 BUN 7 mg/dL (9-20) L 06/19/18 07:04 Creatinine 0.8 mg/dL (0.8-1.5) 06/19/18 07:04 Est GFR ( Amer) > 60 06/19/18 07:04 Est GFR (Non-Af Amer) > 60 06/19/18 07:04 Random Glucose 101 mg/dL (75-110) 06/19/18 07:04 Calcium 9.6 mg/dl (8.6-10.4) 06/19/18 07:04 Phosphorus 3.2 mg/dL (2.5-4.5) 06/18/18 07:11 Magnesium 1.7 mg/dL (1.6-2.3) 06/18/18 07:11 Total Bilirubin 0.6 mg/dL (0.2-1.3) 06/18/18 07:11 AST 29 U/L (17-59) 06/18/18 07:11 ALT 14 U/L (21-72) L D 06/18/18 07:11 Alkaline Phosphatase 93 U/L (38-126) 06/18/18 07:11 Total Creatine Kinase 76 U/L (55-170) 06/13/18 20:02 CK-MB (Mass) 0.85 ng/mL (0.0-3.38) 06/13/18 20:02 Troponin I 0.0230 ng/mL (0.00-0.120) 06/13/18 20:02 Total Protein 6.5 g/dL (6.3-8.3) 06/18/18 07:11 Albumin 3.6 g/dL (3.5-5.0) 06/18/18 07:11 Globulin 2.9 gm/dL (2.2-3.9) 06/18/18 07:11 Albumin/Globulin Ratio 1.2 (1.0-2.1) 06/18/18 07:11 Lipase 137 U/L (23-300) 06/13/18 09:45 Venous Blood Potassium 3.2 mmol/L (3.6-5.2) L 06/13/18 13:05 - Hospital Course Hospital Course: On admission: 62 year old male with past medical history of anterior cervical discectomy and fusion (10 years ago) presents to the ER for pain with swallowing. Patient states he has pain and difficulty with swallowing after his surgery 10 years ago but yesterday the pain became worse 10/10 pain. Patient states the pain radiates to his chest. He states sometimes when he eats the food comes out through his nose which has also been chronic. He states he always feels like food is getting stuck in his throat. His son who is at bedside states he always takes a very long time to finish any meal. Patient states the pain is worse with eating and breathing. Patient also states he also has chronic numbness on the left side of his extremities after the surgery. Patient denies fever, chills, nausea, vomiting, abdominal pain, dysuria, constipation or diarrhea. Hospital course: Patient was admitted for new onset odynophagia, chronic dysphagia. Imaging on cervical spine revealed potential esophageal perforation. GI Dr. Givens was consulted, who recommended barium esophogram. Esophogram revealed no gross esophageal perforation. Neurosurgery Dr. Tomlin was consulted since patient had a history of anterior cervical discectomy and fusion 10 years ago, who stated that plate and screws were in good position, with no surgical intervention at this time. Thoracic surgery Dr. Baeza was also consulted for potential esophageal perforation seen on CT cervical spine. CT chest was revealed ascending aortic aneurysm, 4.1cm in AP dimension, which would need surveillance imaging in [address] Kimball was consulted, found to have a left vocal cord lesion on laryngscopy, which was biopsied and results of biopsy pending. Patient has a history of tobacco dependence, given Nicotine patch. Upon discharge, patient states that his pain has improved and he was able to tolerate diet, and eager to go home. It was explained to the patient in great detail that he will need to follow up for the results of the vocal cord biopsy and patient expressed understanding. Imaging: CT cervical spine: Multilevel ACDF discectomy changes C4-C5 through the C6-C7 levels with 4 level anterior fixation plate attached to the cortical margins of C4 through C7. There is a small amount of air seen adjacent to the anterior inferior margin of the fixation plate at the level of the C6 screws and also along the inferior tip of the plate. Findings may be secondary to partially air-filled esophagus which abuts the inferior margin of the plate however normally, area should not abut the fixation plate which may be in fact exposed to the aerodigestive tract. Clinical correlation with nor surgical consultation recommended. There also appears to be narrowing of the exit foramina at C6-C7 level due to hypertrophic uncovertebral facets. Chest CT (06/14): COPD/emphysematous changes with extensive bulla present. B iapical scarring.Ascending aortic aneurysm measuring approximately 4.1 cm in AP dimension. Single contrast esophagram: Limited single contrast esophagram was performed for evaluation of esophageal perforation. Upon swallowing contrast, gross aspiration was noted of the contrast. A limited single swallow of the esophagus revealed no gross esophageal perforation; however, exam was terminated after gross aspiration was noted. Further evaluation with video esophagram and or upper GI endoscopy maybe helpful for further evaluation if clinically indicated. Modified barium swallow: No aspiration observed. Deep laryngeal penetration with thin liquid, puree and solid consistency barium. Please refer to the detailed report and recommendations of the speech pathologist. CXR: Hyperinflation-chronic changes of COPD. Mild biapical pleural thickening and parenchymal scarring Discharge instructions: 1. Please follow up in [facility] at [phone] by calling to make an appointment to follow up. 2. You need to follow up in the clinic for the results of your vocal cord biopsy. It is highly likely that it is cancer and it is very important that you follow up. 3. To help quit smoking, please call the [place] Quitline [phone]. 4. To help with alcohol cessation, please call the [facility] [place] Alcoholic Anonym ous by calling [phone] 5. Please make sure you follow up with the results of your biopsy before you go back to [facility]. Discharge Exam - Head Exam Head Exam: ATRAUMATIC, NORMAL INSPECTION, NORMOCEPHALIC - Eye Exam Eye Exam: EOMI, PERRL - ENT Exam ENT Exam: Mucous Membranes Moist - Neck Exam Neck exam: Full Rom - Respiratory Exam Respiratory Exam: Clear to PA & Lateral, NORMAL BREATHING PATTERN. absent: Rales, Rhonchi, Wheezes, Respiratory Distress, Stridor - Cardiovascular Exam Cardiovascular Exam: REGULAR RHYTHM, +S1, +S2 - GI/Abdominal Exam GI & Abdominal Exam: Normal Bowel Sounds, Soft. absent: Tenderness - Extremities Exam Extremities exam: pedal pulses present - Back Exam Back exam: absent: CVA tenderness (L), CVA tenderness (R) - Neurological Exam Neurological exam: Alert, Oriented x3 - Psychiatric Exam Psychiatric exam: Normal Affect, Normal Mood - Skin Skin Exam: Dry, Intact, Warm Discharge Plan - Follow Up Plan Condition: STABLE Disposition: HOME/ ROUTINE Instructions: Dysphagia, Soft Diet, Quitting Smoking Additional Instructions: 1. Please follow up in [facility] at [phone] by calling to make an appointment to follow up. 2. You need to follow up in the clinic for the results of your vocal cord biopsy. It is highly likely that it is cancer and it is very important that you follow up. 3. To help quit smoking, please call the [place] Quitline [phone]. 4. To help with alcohol cessation, please call the [facility] Alcoholic Anonymous by calling [phone] 5. Please make sure you follow up with the results of your biopsy before you go back to [facility]. Referrals: Alcoholics Anonymous [Outside] [facility] [Outside] Hai Kimball MD [Staff Provider] - Gold Givens MD [Staff Provider] - <Reyes Ladd - Last Filed: 06/20/18 07:41> Provider - Provider Date of Admission: 06/13/18 13:56 Attending physician: Reyes Ladd DO Consults: 06/13/18 12:54 Physician Consult Routine Comment: Consulting Provider: Sreedhar Tomlin Consulting Physician: Sreedhar Tomlin Reason for Consult: plate in neck movement to ?esophagus 06/13/18 14:04 Physician Consult Routine Comment: Consulting Provider: Gold Givens Consulting Physician: Gold Givens Reason for Consult: ?perf 06/15/18 09:47 ENT [Otolaryngology Consult] Routine Consulting Provider: Hai Kimball Consulting Physician: Hai Kimball Reason for Consult: odynophagia, dysphagia. clearance for egd, per GI Hospital Course - Lab Results Lab Results: Micro Results 06/13/18 12:10 Blood Blood Culture - Final NO GROWTH AFTER 5 DAYS 06/13/18 12:10 Blood Gram Stain - Final TEST NOT PERFORMED 06/13/18 12:10 Blood Blood Culture - Final NO GROWTH AFTER 5 DAYS 06/13/18 12:10 Blood Gram Stain - Final TEST NOT PERFORMED Most Recent Lab Values WBC 7.6 K/uL (4.8-10.8) D 06/19/18 07:04 RBC 4.80 Mil/uL (4.40-5.90) 06/19/18 07:04 Hgb 17.3 g/dL (12.0-18.0) 06/19/18 07:04 Hct 50.5 % (35.0-51.0) 06/19/18 07:04 MCV 105.2 fL (80.0-94.0) H 06/19/18 07:04 MCH 36.1 pg (27.0-31.0) H 06/19/18 07:04 MCHC 34.3 g/dL (33.0-37.0) 06/19/18 07:04 RDW 13.5 % (11.5-14.5) 06/19/18 07:04 Plt Count 312 K/uL (130-400) 06/19/18 07:04 MPV 7.4 fL (7.2-11.7) 06/19/18 07:04 Neut % (Auto) 74.5 % (50.0-75.0) 06/19/18 07:04 Lymph % (Auto) 14.2 % (20.0-40.0) L 06/19/18 07:04 Greer % (Auto) 10.6 % (0.0-10.0) H 06/19/18 07:04 Eos % (Auto) 0.3 % (0.0-4.0) 06/19/18 07:04 Baso % (Auto) 0.4 % (0.0-2.0) 06/19/18 07:04 Neut # (Auto) 5.7 K/uL (1.8-7.0) 06/19/18 07:04 Lymph # (Auto) 1.1 K/uL (1.0-4.3) 06/19/18 07:04 Greer # (Auto) 0.8 K/uL (0.0-0.8) 06/19/18 07:04 Eos # (Auto) 0.0 K/uL (0.0-0.7) 06/19/18 07:04 Baso # (Auto) 0.0 K/uL (0.0-0.2) 06/19/18 07:04 Neutrophils % (Manual) 78 % (50-75) H 06/13/18 09:45 Band Neutrophils % 2 % (0-2) 06/13/18 09:45 Lymphocytes % (Manual) 10 % (20-40) L 06/13/18 09:45 Reactive Lymphs % 4 % (0-0) H 06/13/18 09:45 Monocytes % (Manual) 6 % (0-10) 06/13/18 09:45 Platelet Estimate Normal (NORMAL) 06/13/18 09:45 Anisocytosis (manual) Slight 06/13/18 09:45 Macrocytosis (manual) Slight 06/13/18 09:45 Ovalocytes Slight 06/13/18 09:45 Stomatocytes Slight 06/13/18 09:45 PT 10.3 SECONDS (9.7-12.2) 06/13/18 16:25 INR 0.9 06/13/18 16:25 APTT 33 SECONDS (21-34) 06/13/18 16:25 pO2 50 mm/Hg (30-55) 06/13/18 13:05 VBG pH 7.36 (7.32-7.43) 06/13/18 13:05 VBG pCO2 39 mmHg (40-60) L 06/13/18 13:05 VBG HCO3 22.1 mmol/L 06/13/18 13:05 VBG Total CO2 23.2 mmol/L (22-28) 06/13/18 13:05 VBG O2 Sat (Calc) 87.7 % (40-65) H 06/13/18 13:05 VBG Base Excess -3.1 mmol/L (0.0-2.0) L 06/13/18 13:05 VBG Potassium 3.2 mmol/L (3.6-5.2) L 06/13/18 13:05 Sodium 140.0 mmol/l (132-148) 06/13/18 13:05 Chloride 112.0 mmol/L (98-107) H 06/13/18 13:05 Glucose 86 mg/dl (75-110) 06/13/18 13:05 Lactate 1.0 mmol/L (0.7-2.1) 06/13/18 13:05 Sodium 138 mmol/L (132-148) 06/19/18 07:04 Potassium 3.6 mmol/L (3.6-5.2) 06/19/18 07:04 Chloride 99 mmol/L (98-107) 06/19/18 07:04 Carbon Dioxide 30 mmol/L (22-30) 06/19/18 07:04 Anion Gap 12 (10-20) 06/19/18 07:04 BUN 7 mg/dL (9-20) L 06/19/18 07:04 Creatinine 0.8 mg/dL (0.8-1.5) 06/19/18 07:04 Est GFR ( Amer) > 60 06/19/18 07:04 Est GFR (Non-Af Amer) > 60 06/19/18 07:04 Random Glucose 101 mg/dL (75-110) 06/19/18 07:04 Calcium 9.6 mg/dl (8.6-10.4) 06/19/18 07:04 Phosphorus 3.2 mg/dL (2.5-4.5) 06/18/18 07:11 Magnesium 1.7 mg/dL (1.6-2.3) 06/18/18 07:11 Total Bilirubin 0.6 mg/dL (0.2-1.3) 06/18/18 07:11 AST 29 U/L (17-59) 06/18/18 07:11 ALT 14 U/L (21-72) L D 06/18/18 07:11 Alkaline Phosphatase 93 U/L (38-126) 06/18/18 07:11 Total Creatine Kinase 76 U/L (55-170) 06/13/18 20:02 CK-MB (Mass) 0.85 ng/mL (0.0-3.38) 06/13/18 20:02 Troponin I 0.0230 ng/mL (0.00-0.120) 06/13/18 20:02 Total Protein 6.5 g/dL (6.3-8.3) 06/18/18 07:11 Albumin 3.6 g/dL (3.5-5.0) 06/18/18 07:11 Globulin 2.9 gm/dL (2.2-3.9) 06/18/18 07:11 Albumin/Globulin Ratio 1.2 (1.0-2.1) 06/18/18 07:11 Lipase 137 U/L (23-300) 06/13/18 09:45 Venous Blood Potassium 3.2 mmol/L (3.6-5.2) L 06/13/18 13:05 Attending/Attestation - Attestation I have personally seen and examined this patient.: Yes I have fully participated in the care of the patient.: Yes I have reviewed all pertinent clinical information, including history, physical exam and plan: Yes Notes (Text): 06/20/18 07:38 Medical attending: Patient was seen and examined by me. Agree with the above note by the resident Patient was actively walking in the room on his own. He was tolerating the modified diet. He denied chest pain, denied shortness of breath, denied palpitations. We strongly emphasized to him that we were suspicious the biopsy may be malignant and he said he understoond and would be following up in the clinic here at [facility] as well and to have follow up with reguards to banner monitoring The patient's situation is made more complicated because he is only here for a short period of time because he may be returning to his own [place] Reguardless we still emphasized to him our concerns Reyes Ladd
== END 2018-06-19 13:55 | disposition home or self-care (01) | DRG 392 ==
LOC: C.ER 08:58 → C.9E 13:56 → C.3T 16:54
PROVIDERS: ADMIT Hospitalist; ATTEND Hospitalist
PROC: 0CJS8ZZ Inspection of Larynx, Via Natural or Artificial Opening Endoscopic (ICD-10-PCS; 2018-06-15)
PROC: 0CBV8ZX Excision of Left Vocal Cord, Via Natural or Artificial Opening Endoscopic, Diagnostic (ICD-10-PCS; principal; 2018-06-18 11:45)
DX: R13.10 Dysphagia, unspecified (principal); J38.1 Polyp of vocal cord and larynx; I71.2 Thoracic aortic aneurysm, without rupture; G89.29 Other chronic pain; J44.9 Chronic obstructive pulmonary disease, unspecified; F10.20 Alcohol dependence, uncomplicated; F17.200 Nicotine dependence, unspecified, uncomplicated; Z98.1 Arthrodesis status; S12.9XXS Fracture of neck, unspecified, sequela; W10.9XXS Fall (on) (from) unspecified stairs and steps, sequela